=== PATIENT | male | born 1960 | race Caucasian/White ===

== ENCOUNTER → 2017-06-24 | Outpatient (CLI) | payer OTHER ==
--- NOTE | 2017-06-24 15:25 | US ---
EXAMINATION TYPE: US bladder DATE OF EXAM: 06/24/2017 COMPARISON: NONE CLINICAL HISTORY: R35.1 Nocturia. EXAM MEASUREMENTS: Post Void Residual Volume: 3.8 mL Color Doppler performed to assess ureteral jets. Bilateral Jets seen: Yes Normal Post Void Residual (less than 50ml): yes Bladder is not greatly distended but there is no suspicious intraluminal mass or wall thickening seen . IMPRESSION: Unremarkable study.
== END ==
LOC: RADUSWWP 14:14
PROVIDERS: ATTEND Family Medicine
DX: R35.1 Nocturia (principal)
CPT/HCPCS: 76857

== ENCOUNTER 2017-11-03 11:40 | Inpatient (IN) | payer OTHER ==
[2017-11-03] MEDS ORDERED: SODIUM CHLORIDE 0.9% 1,000 ML IV STA (12:08)
[2017-11-03] MEDS ORDERED: ONDANSETRON 4 MG/2 ML VIAL IVP STA (12:08)
[2017-11-03] MEDS ORDERED: MORPHINE SULFATE 4 MG/ML SYRINGE IV STA (12:08)
[2017-11-03 12:37] LABS: Basophils % (A) 0 %; Eosinophils # (A) 0.3 k/uL (0-0.7); Eosinophils % (A) 4 %; HCT 49.9 % (39.0-53.0); HGB 15.4 gm/dL (13.0-17.5); Lymphocytes # (A) 1.9 k/uL (1.0-4.8); Lymphocytes % (A) 27 %; MCH 29.9 pg (25.0-35.0); MCHC 30.9 g/dL (31.0-37.0); MCV 96.5 fL (80.0-100.0); Mean Platelet Volume 8.6; Monocytes # (A) 0.4 k/uL (0-1.0); Monocytes % (A) 5 %; Neutrophils # (A) 4.4 k/uL (1.3-7.7); Neutrophils % (A) 62 %; Platelet Count 153 k/uL (150-450); RBC 5.17 m/uL (4.30-5.90); RDW 14.3 % (11.5-15.5); WBC 7.1 k/uL (3.8-10.6)
[2017-11-03 12:40] LABS: ALT 34 U/L (21-72); AST 26 U/L (17-59); Albumin 3.9 g/dL (3.5-5.0); Alkaline Phosphatase 54 U/L (38-126); Amylase <30 U/L (30-110); Anion Gap 8 mmol/L; Blood Urea Nitrogen 16 mg/dL (9-20); Calcium 9.3 mg/dL (8.4-10.2); Carbon Dioxide 23 mmol/L (22-30); Chloride 108 mmol/L (98-107); Glucose 141 mg/dL (74-99); Lipase 14 U/L (23-300); Potassium 4.1 mmol/L (3.5-5.1); Sodium 139 mmol/L (137-145); Total Protein 6.4 g/dL (6.3-8.2)
--- NOTE | 2017-11-03 13:31 | CT ---
EXAMINATION TYPE: CT abdomen pelvis w con DATE OF EXAM: 11/03/2017 COMPARISON: NONE HISTORY: 57-year-old male with generalized abdominal pain. 46 lb weight loss over one week. TECHNIQUE: Contiguous axial scanning of the abdomen and pelvis following administration of 100 ml Iso tanisha 300 IV contrast. Delayed images through the kidneys and coronal/sagittal reconstructions perform ed. CT DLP: 3946 mGycm Automated exposure control for dose reduction was used. FINDINGS: Heart upper limits of normal in size without pericardial effusion. There is a small right-sided pleur al effusion with adjacent atelectasis. Some fat stranding is noted throughout the subcutaneous adipose layer with dependent edema suggesting anasarca-type change. No focal liver lesion is seen though the liver is enlarged at 20.5 cm greater caudal. Weak opacificat ion of the portal venous system limited assessment. No obvious filling defect is seen. No biliary megan kiara dilatation. A couple prominent celeste hepatic lymph nodes measuring up to 1.1 cm and a prominent but nonenlarged p ortacaval lymph node measuring 1.0 cm. Gastrohepatic ligament lymph node measures 1.0 cm. There may be some layering sludge in the gallbladder. Gallbladder mildly hydropic probably relating t o fasting state. Adrenal glands, kidneys, spleen, and atrophic pancreas show no gross abnormality. However, on the del ayed kidney images, no contrast excretion is seen from the kidneys. There is moderate abdominal ascites. Incidental retroaortic left renal vein. No dilated small bowel or free air. Mild overall stool burden with sigmoid diverticulosis but no findings of acute diverticulitis. Bladder nondistended. Artifact from the patient's right total arthroplasty limiting visualization of the pelvis. Presacral edema and ascites fluid. No pelvic lymphadenopathy seen. Bones: Right hip replacement as mentioned above. There is heterotopic ossification along the superior aspect of the right hip joint. L5 bilateral assimilation joints with the sacrum incidentally noted. Degenerative changes lower lumbar spine. There is a 2 cm focus of AVN along the weightbearing aspect of the femoral head and 1.8 cm wide area of subarticular collapse noted. IMPRESSION: 1. DIFFUSE ANASARCA-TYPE CHANGE, MODERATE ABDOMINOPELVIC ASCITES, AND SMALL RIGHT PLEURAL EFFUSION. C ORRELATE FOR FLUID OVERLOAD STATE AND POSSIBLE CAUSES. 2. HEPATOMEGALY (20.5 CM). CORRELATE TO EXCLUDE UNDERLYING HEPATITIS/LIVER FAILURE A POSSIBLE ETIO LOGY. 3. NO CONTRAST EXCRETION FROM THE KIDNEYS ON THE DELAYED KIDNEY IMAGES. CORRELATE WITH RENAL FUNCTION WITH ACUTE RENAL FAILURE INCLUDING ATN AND CONTRAST NEPHROPATHY INCLUDED IN THE DIFFERENTIAL. 4. MILDLY HYDROPIC GALLBLADDER LIKELY RELATING TO FASTING STATE. SOME LAYERING SLUDGE IS PRESENT WITH IN. IF RIGHT UPPER QUADRANT PAIN OR CONCERN FOR EARLY ACUTE CHOLECYSTITIS, FOLLOW-UP ULTRASOUND OR HI DA SCAN. 5. SIGMOID DIVERTICULOSIS WITHOUT ACUTE DIVERTICULITIS. 6. 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
[2017-11-03] MEDS ORDERED: FUROSEMIDE 10 MG/ML 10 ML VIAL IV STA (14:03)
--- NOTE | 2017-11-03 14:19 | ED ---
Abdominal Pain HPI - General Chief Complaint: Abdominal Pain Stated Complaint: ABDOMINAL SWELLING, WEIGHT GAIN Time Seen by Provider: 11/03/17 11:59 Source: patient Mode of arrival: ambulatory Limitations: no limitations - History of Present Illness Initial Comments: 57 years old male comes in with the abdominal pain, abdominal pain started about 1 week ago he is also complaining about abdominal distention his abdomen is quite distended and noticed some edema and swelling over the abdomen as well as lower extremities he denies any past medical history he does drink he was rather vague about how much she does she drink but he denies any history of hepatitis B or hepatitis C or any history of cirrhosis in the past. Denies any headaches no neck stiffness no chest pain he is short-winded because of the distended abdomen denies any pleuritic chest pain - Related Data Home Medications Medication Instructions Recorded Confirmed Albuterol Nebulized [Ventolin 2.5 mg INHALATION Q4H 11/03/17 11/03/17 Nebulized] Ergocalciferol [Vitamin D2] 50,000 unit PO Q7D 11/03/17 11/03/17 Hydrocodone/Acetaminophen 1 tab PO Q4HR PRN 11/03/17 11/03/17 [Hydrocodone-Acetamin 7.5-300] Allergies Allergy/AdvReac Type Severity Reaction Status Date / Time No Known Allergies Allergy Verified 11/03/17 11:49 Review of Systems ROS Statement: Those systems with pertinent positive or pertinent negative responses have been documented in the HPI. ROS Other: All systems not noted in ROS Statement are negative. Past Medical History Past Medical History: Asthma Additional Past Medical History / Comment(s): chronic hip pain, back pinched nerves History of Any Multi-Drug Resistant Organisms: None Reported Additional Past Surgical History / Comment(s): right hip replace, amputation left hand Past Psychological History: No Psychological Hx Reported Smoking Status: Current every day smoker Past Alcohol Use History: Daily Past Drug Use History: None Reported General Exam - General Exam Comments Initial Comments: General: The patient is awake and alert, in mild distress because of the distended abdomen Skin: Skin is warm and dry and no rashes or lesions are noted. Eye: Pupils are equal, round and reactive to light, extra-ocular movements are intact; there is normal conjunctiva bilaterally. Ears, nose, mouth and throat: There are moist mucous membranes and no oral lesions. Neck: The neck is supple, there is no tenderness or JVD. Cardiovascular: There is a regular rate and rhythm. No murmur, rub or gallop is appreciated. Respiratory: To auscultation bilateral, no wheezing no rhonchi no distress respiratory castrejon noticed Gastrointestinal: Noticed him a quite large distention of the abdomen noticed some fluid overload, it's like anasarca a generalized edema of the abdomen and was not able to appreciate any hepatosplenomegaly because of the edema no focal area of tenderness noticed bowel sounds are positive no guarding no rebounds no signs of peritonitis noticed in today's abdominal exam Back: There is no tenderness to palpation in the midline. There is no obvious deformity. Musculoskeletal: Normal ROM, no tenderness, There is no pedal edema. There is no calf tenderness or swelling. No cords were appreciated. Neurological: CN II-XII intact, Cranial nerves III through XII are intact. There are no obvious motor or sensory deficits. Coordination appears grossly intact. Speech is normal. Psychiatric: Cooperative, appropriate mood & affect, normal judgment. Limitations: no limitations Course Vital Signs 11/03/17 11/03/17 11:50 14:05 Temperature 97.5 F L Pulse Rate 113 H 101 H Respiratory 18 18 Rate Blood Pressure 129/91 123/80 O2 Sat by Pulse 96 94 L Oximetry Upon reassessment noticed CBC, CMP, comp his metabolic panel are within normal range so is the troponin, CT of the abdomen is significant for ascites some sludge and gallbladder and now avascular necrosis of the hip or the one side but that's no tingling in included an patient's presenting complaint today. These findings were discussed with the Dr. Galan he agrees with the admission will allow consult Dr. Perez for further evaluation of her possible liver disease Medical Decision Making - Lab Data Result diagrams: 11/03/17 12:15 11/03/17 12:15 Lab Results 11/03/17 11/03/17 11/03/17 Range/Units 12:15 12:15 12:15 WBC 7.1 (3.8-10.6) k/uL RBC 5.17 (4.30-5.90) m/uL Hgb 15.4 (13.0-17.5) gm/dL Hct 49.9 (39.0-53.0) % MCV 96.5 (80.0-100.0) fL MCH 29.9 (25.0-35.0) pg MCHC 30.9 L (31.0-37.0) g/dL RDW 14.3 (11.5-15.5) % Plt Count 153 (150-450) k/uL Neutrophils % 62 % Lymphocytes % 27 % Monocytes % 5 % Eosinophils % 4 % Basophils % 0 % Neutrophils # 4.4 (1.3-7.7) k/uL Lymphocytes # 1.9 (1.0-4.8) k/uL Monocytes # 0.4 (0-1.0) k/uL Eosinophils # 0.3 (0-0.7) k/uL Basophils # 0.0 (0-0.2) k/uL Sodium 139 (137-145) mmol/L Potassium 4.1 (3.5-5.1) mmol/L Chloride 108 H (98-107) mmol/L Carbon Dioxide 23 (22-30) mmol/L Anion Gap 8 mmol/L BUN 16 (9-20) mg/dL Creatinine 0.68 (0.66-1.25) mg/dL Est GFR (CKD-EPI)AfAm >90 (>60 ml/min/1.73 sqM) Est GFR (CKD-EPI)NonAf >90 (>60 ml/min/1.73 sqM) Glucose 141 H (74-99) mg/dL Plasma Lactic Acid Arnaldo 1.1 (0.7-2.0) mmol/L Calcium 9.3 (8.4-10.2) mg/dL Total Bilirubin 1.0 (0.2-1.3) mg/dL AST 26 (17-59) U/L ALT 34 (21-72) U/L Alkaline Phosphatase 54 (38-126) U/L Troponin I (0.000-0.034) ng/mL Total Protein 6.4 (6.3-8.2) g/dL Albumin 3.9 (3.5-5.0) g/dL Amylase <30 L (30-110) U/L Lipase 14 L (23-300) U/L 11/03/17 Range/Units 12:15 WBC (3.8-10.6) k/uL RBC (4.30-5.90) m/uL Hgb (13.0-17.5) gm/dL Hct (39.0-53.0) % MCV (80.0-100.0) fL MCH (25.0-35.0) pg MCHC (31.0-37.0) g/dL RDW (11.5-15.5) % Plt Count (150-450) k/uL Neutrophils % % Lymphocytes % % Monocytes % % Eosinophils % % Basophils % % Neutrophils # (1.3-7.7) k/uL Lymphocytes # (1.0-4.8) k/uL Monocytes # (0-1.0) k/uL Eosinophils # (0-0.7) k/uL Basophils # (0-0.2) k/uL Sodium (137-145) mmol/L Potassium (3.5-5.1) mmol/L Chloride (98-107) mmol/L Carbon Dioxide (22-30) mmol/L Anion Gap mmol/L BUN (9-20) mg/dL Creatinine (0.66-1.25) mg/dL Est GFR (CKD-EPI)AfAm (>60 ml/min/1.73 sqM) Est GFR (CKD-EPI)NonAf (>60 ml/min/1.73 sqM) Glucose (74-99) mg/dL Plasma Lactic Acid Arnaldo (0.7-2.0) mmol/L Calcium (8.4-10.2) mg/dL Total Bilirubin (0.2-1.3) mg/dL AST (17-59) U/L ALT (21-72) U/L Alkaline Phosphatase (38-126) U/L Troponin I <0.012 (0.000-0.034) ng/mL Total Protein (6.3-8.2) g/dL Albumin (3.5-5.0) g/dL Amylase (30-110) U/L Lipase (23-300) U/L Disposition Clinical Impression: Anasarca, Ascites Disposition: ADMITTED IP TO THIS HOSP Condition: Good Referrals: Reinier Galan MD [Primary Care Provider] - 1-2 days
[2017-11-03] MEDS ORDERED: ACETAMINOPHEN TAB 325 MG TAB PO PRN (14:33)
[2017-11-03] MEDS ORDERED: NALOXONE 0.4 MG/ML 1 ML VIAL IV PRN (14:33)
[2017-11-03] MEDS ORDERED: ONDANSETRON 4 MG/2 ML VIAL IVP PRN (14:33)
[2017-11-03] MEDS ORDERED: SPIRONOLACTONE 25 MG TAB PO STA (14:38)
[2017-11-03 14:51] LABS: Appearance,Urine Clear (Clear); Bilirubin,Urine Negative (Negative); Blood,Urine Negative (Negative); Color,Urine Yellow; Glucose,Urine (UA) Negative (Negative); Ketones,Urine Negative (Negative); Leukocyte Esterase,Urine Negative (Negative); Nitrite,Urine Negative (Negative); PH, Urine 5.5 (5.0-8.0); Protein,Urine Trace (Negative); Urobilinogen,Urine <2.0 mg/dL (<2.0)
[2017-11-03 15:00] LABS: Specific Gravity,Urine >1.050 (1.001-1.035)
--- NOTE | 2017-11-03 15:04 | XR ---
EXAMINATION TYPE: XR chest 2V DATE OF EXAM: 11/03/2017 COMPARISON: November 03, 2017 HISTORY: Shortness of breath TECHNIQUE: Frontal and lateral views of the chest are obtained. FINDINGS: Scattered senescent parenchymal changes noted. Hyperinflation compatible with COPD. No evidence for infiltrate. No evidence for atelectasis. Heart size is stable. Mediastinal structures are stable and grossly unremarkable. No evidence for hilar prominence. Degenerative changes dorsal spine. IMPRESSION: 1. No evidence for acute pulmonary disease.
[2017-11-03] MEDS: ALBUTEROL NEBULIZED 2.5 MG/3 ML INHALATION SCH ×3 (16:37→23:05)
--- NOTE | 2017-11-03 17:55 | HP ---
HISTORY AND PHYSICAL CHIEF COMPLAINT: Abdominal distention and weight gain of 46 pounds. HISTORY OF PRESENT ILLNESS: This is another admission for this 57-year-old white male. He came to the office on the morning of admission, stating that he had been gaining weight in his abdomen and become hugely distended. He denied any vomiting, significant abdominal pain, diarrhea, melena, jaundice, etc. In the office, flat and upright films did not demonstrate any abnormal bowel pattern and he was referred to the emergency room for a further evaluation, including CT. Results in the ER indicated that his problem was related to cirrhosis with ascites and he was admitted. He has also been complaining of shortness of breath, but his chest x-ray in the office demonstrated no evidence of heart failure or effusions. REVIEW OF SYSTEMS: He has had no nausea, vomiting, melena, hematochezia, jaundice, dysuria, renal failure, etc. PAST MEDICAL HISTORY, FAMILY HISTORY, PERSONAL AND SOCIAL HISTORIES: Reveal he is not allergic to any medication. He is on: 1. Albuterol updrafts. 2. Vitamin D. 3. Lipitor 80. 4. Amaryl 2 mg twice a day. 5. Vicodin 7.5 q.4h p.r.n. 6. Ventolin HFA. In 1999, he had a myocardial infarction. He has had a right hip replacement. He does smoke. He admits to drinking "occasionally." PHYSICAL EXAMINATION: Blood pressure is 142/88 with a pulse of 90, respirations of 41. He is afebrile. In general, he appeared to be overweight and in no acute distress. Abdomen was very distended. Lymph nodes are not enlarged. There is no jaundice. Head, ears, eyes, nose, mouth, and throat were normal and chest was clear. Cardiac demonstrated what sounded like sinus rhythm. There were no murmurs or extra sounds. The abdomen is very protuberant and hard. Bowel sounds are present. He had cellulitis over the lower abdomen. Extremities are normal except for mild edema. Neurologically, he is intact and intact. He is admitted to the hospital with diagnoses: 1. Alcoholic cirrhosis with ascites. 2. Cellulitis of the lower abdominal wall. 3. History of chronic obstructive pulmonary disease. 4. Type 2 non-insulin dependent diabetes mellitus. PLAN: 1. Bed rest. 2. IV fluids. 3. Diuresis. 4. GI consult. MMODL / IJN: [id number] /
[2017-11-03] MEDS: HYDROcodone/APAP 7.5-325MG 1 EACH TAB PO PRN ×2 (18:19→22:56)
[2017-11-04] MEDS: ALBUTEROL NEBULIZED 2.5 MG/3 ML INHALATION SCH ×5 (03:30→20:17)
[2017-11-04] MEDS: HYDROcodone/APAP 7.5-325MG 1 EACH TAB PO PRN ×3 (05:00→17:18)
[2017-11-04 07:54] LABS: ALT 29 U/L (21-72); AST 24 U/L (17-59); Albumin 3.8 g/dL (3.5-5.0); Alkaline Phosphatase 50 U/L (38-126); Anion Gap 8 mmol/L; Blood Urea Nitrogen 17 mg/dL (9-20); Calcium 9.5 mg/dL (8.4-10.2); Carbon Dioxide 25 mmol/L (22-30); Chloride 105 mmol/L (98-107); Glucose 155 mg/dL (74-99); Sodium 138 mmol/L (137-145); Total Bilirubin 0.8 mg/dL (0.2-1.3); Total Protein 6.3 g/dL (6.3-8.2)
[2017-11-04 07:55] LABS: Potassium 4.4 mmol/L (3.5-5.1)
[2017-11-04 08:11] LABS: Basophils # (A) 0.1 k/uL (0-0.2); Basophils % (A) 1 %; Eosinophils # (A) 0.4 k/uL (0-0.7); Eosinophils % (A) 5 %; HCT 50.8 % (39.0-53.0); HGB 15.4 gm/dL (13.0-17.5); Hypochromasia Slight; Lymphocytes % (A) 25 %; MCHC 30.4 g/dL (31.0-37.0); MCV 98.9 fL (80.0-100.0); Mean Platelet Volume 9.2; Monocytes # (A) 0.6 k/uL (0-1.0); Monocytes % (A) 7 %; Neutrophils # (A) 4.8 k/uL (1.3-7.7); Neutrophils % (A) 60 %; Platelet Count 152 k/uL (150-450); RBC 5.14 m/uL (4.30-5.90); RDW 14.3 % (11.5-15.5)
[2017-11-04 12:27] LABS: INR 1.2 (<1.2); Prothrombin Time 11.7 sec (9.0-12.0)
--- NOTE | 2017-11-04 17:44 | PN ---
PROGRESS NOTE CHIEF COMPLAINT: Anasarca and ascites. HISTORY OF PRESENT ILLNESS: This gentleman has not diuresed a great deal yet. It was explained that this likely is due to cirrhosis, but he does not want to accept this. PHYSICAL EXAMINATION: Abdomen still remains very distended. Chest is clear. Cardiac exam is normal. IMPRESSION: Anasarca and ascites secondary to cirrhosis. PLAN: Add additional diuretic management and continue to follow. MMODL / IJN: [id number] /
[2017-11-04] MEDS ORDERED: POLYETHYLENE GLYCOL 3350 17 GM POWD.PACK PO STA (18:53)
--- NOTE | 2017-11-04 19:06 | P.CONS ---
History of Present Illness - Reason for Consult Consult date: 11/04/17 Ascites Requesting physician: Reinier Galan - Chief Complaint Abdominal swelling - History of Present Illness The patient is a 57-year-old male with past medical history significant for asthma, tobacco abuse who presented to the hospital with reports of abdominal pain for 8 days in duration. The patient reports significant abdominal distention and bloating which occurred acutely over the last 8 days. He reports an associated 46 pounds weight gain. He denies any prior episodes of abdominal swelling or fluid. He has never had a paracentesis in the past. He also notes that his bowel movements have changed over this same period. The patient previously had daily bowel movements with no hematochezia, melena or constipation. Over the past 8 days he had had approximately 4 bowel movements and only with the assistance of a laxative. He also had one bowel movement with some blood noted on the stool and with wiping. Subsequent bowel movements have been nonbloody. He has had screening colonoscopy at the age of 50, approximately 8 years ago which she believes was normal. He denies any history of heavy alcohol use. Denies any history of pancreatitis or cirrhosis. Denies any confusion or previous upper GI bleeds. He does report chills and sweats recently. The patient reports being very uncomfortable because of the abdominal distal distention and having difficulty breathing and lying flat because of his distended abdomen. The patient's father of colon cancer which was diagnosed in his mid to late 80s. Past endoscopic history: Colonoscopy 8 years ago which he believes was normal. Review of Systems REVIEW OF SYSTEMS: CARDIOPULMONARY: Denies chest pain but the patient has had shortness of breath due to his distended abdomen. GENITOURINARY: No dysuria or hematuria. MUSCULOSKELETAL: No weakness reported. SKIN: Denies any new rashes or lesions, jaundice or pallor. PSYCHIATRIC: Denies any depression or anxiety. NEUROLOGY: Denies headache, denies any new focal deficits. EARS: No tinnitus, discharge or new hearing loss. NOSE: No discharge or congestion. EYES: No pain in eyes or change in vision. CONSTITUTIONAL: No recent weight loss with the patient actually reporting a 46 pound weight gain in the past 8 days due to his abdominal distention. No fever, but the patient has had chills, and night sweats. Past Medical History Past Medical History: Asthma Additional Past Medical History / Comment(s): chronic hip pain, back pinched nerves History of Any Multi-Drug Resistant Organisms: None Reported Additional Past Surgical History / Comment(s): right hip replace, amputation left hand Past Anesthesia/Blood Transfusion Reactions: No Reported Reaction Past Psychological History: No Psychological Hx Reported Smoking Status: Current every day smoker Past Alcohol Use History: Daily Past Drug Use History: None Reported - Past Family History Mother Family Medical History: COPD Father Family Medical History: Cancer Medications and Allergies Home Medications Medication Instructions Recorded Confirmed Type Albuterol Inhaler [Ventolin Hfa 1 - 2 puff INHALATION RT-Q6H PRN 11/03/17 History Inhaler] Albuterol Nebulized [Ventolin 2.5 mg INHALATION RT-Q4H PRN 11/03/17 11/03/17 History Nebulized] Ergocalciferol [Vitamin D2] 50,000 unit PO Q14D 11/03/17 11/03/17 History HYDROcodone/APAP 7.5-325MG [[place] 1 - 2 tab PO Q4H PRN 11/03/17 11/03/17 History 7.5-325] Allergies Allergy/AdvReac Type Severity Reaction Status Date / Time No Known Allergies Allergy Verified 11/03/17 14:21 Physical Exam Vitals: Vital Signs Temp Pulse Pulse Resp BP Pulse Ox 11/04/17 16:53 110 H 11/04/17 16:44 110 H 11/04/17 15:00 97.6 F 111 H 18 146/72 93 L 11/04/17 12:16 100 11/04/17 12:07 96 11/04/17 07:40 100 11/04/17 07:34 92 L 11/04/17 07:33 100 11/04/17 07:25 97.6 F 109 H 20 116/84 90 L 11/04/17 03:40 106 H 11/04/17 03:30 109 H 11/04/17 03:15 20 11/03/17 23:58 20 11/03/17 23:39 98 F 116 H 20 115/75 95 11/03/17 23:15 108 H 11/03/17 23:06 108 H 11/03/17 20:00 18 11/03/17 19:43 112 H 18 11/03/17 19:24 98.3 F 115 H 18 116/78 93 L Intake and Output 11/04/17 11/04/17 11/04/17 06:59 14:59 22:59 Intake Total 1200 400 Balance 1200 400 Intake: Intake, IV Titration 800 Amount Sodium Chloride 0.9% 1, 800 000 ml @ 100 mls/hr IV . Q10H STA Rx#:[id number] Oral 400 Other 400 Other: Voiding Method Toilet # Voids 3 3 On physical examination, patient appears comfortable in no apparent distress. HEAD: Normocephalic, atraumatic. EYES: No scleral icterus. No conjunctival injection. MOUTH: No lesions, tongue midline, poor dentition. NECK: Trachea midline, no gross abnormalities. CHEST: Decreased air entry in all lung mi with some wheezing noted. HEART: Regular rate and rhythm. ABDOMEN: Distended obese. Patient has tense ascites with positive fluid wave. Bowel sounds are positive. No organomegaly. No guarding or rigidity. EXTREMITIES: Bilateral pedal edema. SKIN: No rashes, no jaundice. NEUROLOGIC: Alert and oriented x3. No focal deficits. Results CBC & Chem 7: 11/04/17 07:11 11/04/17 07:11 Labs: Abnormal Lab Results - Last 24 Hours (Table) 11/04/17 11/04/17 11/04/17 Range/Units 07:11 07:11 11:55 MCHC 30.4 L (31.0-37.0) g/dL INR 1.2 H (<1.2) Glucose 155 H (74-99) mg/dL Microbiology - Last 24 Hours (Table) 11/03/17 12:23 Blood Culture - Preliminary Blood No Growth after [address] scan - abdomen: report reviewed (Computed tomography scan abdomen showing fluid in the abdomen and pelvis, diverticulosis, and hepatomegaly with other findings per radiology report.) Assessment and Plan (1) Ascites Narrative/Plan: Unknown etiology, the patient does have hepatomegaly but liver enzymes, INR and platelet counts are not suggestive of cirrhosis and portal hypertension as etiology of the patient's ascites. Other considerations are for cardiac source or underlying malignancy. Current Visit: Yes Status: Acute Code(s): R18.8 - OTHER ASCITES SNOMED Code(s): 326191512 (2) Hepatomegaly Narrative/Plan: Unclear etiology, may represent fatty liver. No elevation in liver enzymes to suggest cirrhosis or acute infection. Current Visit: Yes Status: Acute Code(s): R16.0 - HEPATOMEGALY, NOT ELSEWHERE CLASSIFIED SNOMED Code(s): 00045263 (3) Constipation Narrative/Plan: Constipation over the past 8 days in association with the patient's ascites. This may be secondary to fluid overload. Per the patient his last colonoscopy was 8 years ago and was normal. Current Visit: Yes Status: Acute Code(s): K59.00 - CONSTIPATION, UNSPECIFIED SNOMED Code(s): 50430344 (4) Hematochezia Narrative/Plan: The patient reports one episode of blood mixed with his stool and with wiping that occurred several days ago. Subsequent bowel movements have been nonbloody. Per history the blood sounds hemorrhoidal in nature. Current Visit: Yes Status: Acute Code(s): K92.1 - MELENA SNOMED Code(s): 267232331 Plan: Supportive care Okay for diet Acute hepatitis panel or ordered Follow liver enzymes Paracentesis with fluid studies including cell count and differential, cytology , albumin, protein, glucose, LDH have all been ordered. This will be both diagnostic and therapeutic. MiraLAX daily started No plan for endoscopy at this time. Patient's report of 1 episode of blood per rectum with wiping likely indicates hemorrhoids. However if paracentesis is not revealing of etiology the patient will benefit from a endoscopic to rule out malignancy. Thank you for allowing us to participate in the care of this patient
[2017-11-04] MEDS: FUROSEMIDE 10 MG/ML 4 ML VIAL IV SCH (19:32)
[2017-11-04] MEDS: SPIRONOLACTONE 25 MG TAB PO SCH (20:52)
[2017-11-05] MEDS: ALBUTEROL NEBULIZED 2.5 MG/3 ML INHALATION SCH ×8 (00:04→23:27)
[2017-11-05] MEDS: HYDROcodone/APAP 7.5-325MG 1 EACH TAB PO PRN ×5 (00:41→22:57)
[2017-11-05 07:50] LABS: INR 1.2 (<1.2); Prothrombin Time 11.4 sec (9.0-12.0)
[2017-11-05] MEDS: POLYETHYLENE GLYCOL 3350 17 GM POWD.PACK PO SCH ×2 (08:27→12:02)
[2017-11-05] MEDS: FUROSEMIDE 10 MG/ML 4 ML VIAL IV SCH ×2 (08:33→20:16)
[2017-11-05] MEDS: SPIRONOLACTONE 25 MG TAB PO SCH ×2 (08:34→20:15)
--- NOTE | 2017-11-05 12:48 | PN ---
PROGRESS NOTE DATE OF SERVICE: 11/05/2017 Patient is a 57-year-old white male who was admitted to hospital with abdominal pain abdominal distention for the last 2 weeks duration. He had a CT of the abdomen that showed ascites and he underwent large volume paracentesis this morning by Interventional Radiology and 4 L of fluid was aspirated. He feels much better. He still has some abdominal distention and abdominal bloating. He complains of constipation. His last colonoscopy was 8 years ago and according to him was within normal limits. He has no history of chronic liver disease. No history of jaundice or hepatitis. PHYSICAL EXAMINATION: On physical examination, he appears comfortable in no apparent distress. Vital signs are stable. Blood pressure is 120/86, pulse rate 107, and afebrile. HEENT EXAMINATION: Unremarkable. Conjunctivae are pink. Sclerae anicteric. Oral cavity, no lesions. NECK: No JVD or lymph node enlargement. Chest was clear to auscultation. HEART: Regular rate and rhythm. ABDOMEN: Soft. It was slightly distended. Bowel sounds are positive. No organomegaly. EXTREMITIES: No pedal edema. SKIN: No rashes. NEURO: Alert and oriented x3. No focal deficits. LABS: Labs from yesterday, WBC 8, hemoglobin 15, platelets are normal. Basic metabolic panel is within normal limits. ALT, AST, bilirubin and alkaline phosphatase are all within normal limits. Albumin is 3.8. CT of the abdomen done at the time of admission to the hospital did show evidence of ascites. Liver was enlarged. Evidence of diffuse anasarca, hepatomegaly and sigmoid diverticulosis. IMPRESSION: 1. New onset ascites in this patient who does not have any history of chronic liver disease in the past. No history of alcoholism. CT of the abdomen as mentioned above showed ascites, status post large volume paracentesis for diagnostic and therapeutic purposes, which was done this morning and 4 L of fluid was removed. 2. New onset constipation in this patient who also has a family history of colorectal neoplasia that was diagnosed with colon cancer. His last colonoscopy was 8 years ago. RECOMMENDATIONS: 1. At this time we will await fluid analysis and cytology results. 2. I agree with diuretics. 3. Labs in the morning and will follow him closely during his hospital stay. Thank you for this consultation. MMODL / MARYN: [id number] /
[2017-11-05 13:11] LABS: Appearance,BF Hazy; Color,BF Yellow; Nucleated Cells, Body Fluid 560 /uL; RBC, Body Fluid 350 /uL
[2017-11-05 13:13] LABS: Mononuclear WBC,Body Fluid 94 %; Polynuclear WBC,Body Fluid 6 %; Total Cells Counted,Body Fluid 100
--- NOTE | 2017-11-05 13:15 | US ---
EXAMINATION TYPE: US paracentesis abd w/image DATE OF EXAM: 11/05/2017 CLINICAL HISTORY: 57-year-old male abdominal ascites TECHNIQUE: The procedure was discussed with the patient. The risks, complications, benefits, and alternatives we re discussed and any questions were answered. Informed consent was obtained from the patient. The patient was placed supine on the ultrasound table and prepped and draped in the usual sterile fas hion. All elements of maximal barrier technique were utilized. Ultrasound was used to select the precise s kin entry site along the left lower quadrant. Moderate abdominal ascites was noted here. Subsequently, a 6 Lithuan[place] safety centesis catheter was introduced into the left lower quadrant ascites collection utilizing trocar technique. Approximately 6 liters of straw-colored fluid was removed. Patient remained stable during the procedu re and monitoring was performed by nursing personnel. The catheter was removed, hemostasis obtained, and Tegaderm dressing placed. Specimen was labeled and sent for laboratory analysis. IMPRESSION: Successful diagnostic and therapeutic paracentesis under ultrasound guidance. 6 L removed. Laboratory analysis pending.
[2017-11-05 16:19] LABS: Basophils % (A) 1 %; Eosinophils # (A) 0.3 k/uL (0-0.7); Eosinophils % (A) 5 %; HCT 46.8 % (39.0-53.0); Lymphocytes # (A) 1.7 k/uL (1.0-4.8); Lymphocytes % (A) 27 %; MCH 30.4 pg (25.0-35.0); MCHC 32.1 g/dL (31.0-37.0); MCV 94.6 fL (80.0-100.0); Mean Platelet Volume 9.5; Monocytes # (A) 0.4 k/uL (0-1.0); Monocytes % (A) 7 %; Neutrophils # (A) 3.9 k/uL (1.3-7.7); Neutrophils % (A) 60 %; Platelet Count 125 k/uL (150-450); RBC 4.95 m/uL (4.30-5.90); WBC 6.6 k/uL (3.8-10.6)
[2017-11-05 16:34] LABS: ALT 31 U/L (21-72); AST 22 U/L (17-59); Albumin 3.6 g/dL (3.5-5.0); Alkaline Phosphatase 48 U/L (38-126); Anion Gap 8 mmol/L; Blood Urea Nitrogen 19 mg/dL (9-20); Calcium 9.6 mg/dL (8.4-10.2); Carbon Dioxide 28 mmol/L (22-30); Chloride 101 mmol/L (98-107); Glucose 157 mg/dL (74-99); Potassium 4.6 mmol/L (3.5-5.1); Sodium 137 mmol/L (137-145); Total Bilirubin 0.6 mg/dL (0.2-1.3)
[2017-11-05 17:18] LABS: Total Protein, Body Fluid 3700 mg/dL
[2017-11-05 17:42] LABS: Hepatitis B Core IgM Non-Reactive (Non-Reactive); Hepatitis B Surface AB- Quant 3.5 mIU/mL
[2017-11-05] MEDS: AMOXIC-POT CLAV 875-125MG 1 EACH TAB PO SCH (20:16)
[2017-11-06] MEDS: HYDROcodone/APAP 7.5-325MG 1 EACH TAB PO PRN ×4 (02:51→17:52)
[2017-11-06] MEDS: ALBUTEROL NEBULIZED 2.5 MG/3 ML INHALATION SCH ×5 (03:29→19:24)
[2017-11-06] MEDS: SPIRONOLACTONE 25 MG TAB PO SCH ×2 (08:26→20:05)
[2017-11-06] MEDS: POLYETHYLENE GLYCOL 3350 17 GM POWD.PACK PO SCH (08:26)
[2017-11-06] MEDS: FUROSEMIDE 10 MG/ML 4 ML VIAL IV SCH ×2 (08:26→20:05)
[2017-11-06] MEDS: AMOXIC-POT CLAV 875-125MG 1 EACH TAB PO SCH ×2 (08:27→20:05)
--- NOTE | 2017-11-06 10:25 | PN ---
PROGRESS NOTE Patient is a 57-year-old pleasant white male admitted to the hospital with new onset ascites. He underwent large volume paracentesis 2 days ago and approximately 4 L of fluid was aspirated. He is doing better today. He still complains of severe constipation. He reports no abdominal pain. No nausea, vomiting. He has been started on diuretics with Lasix and Aldactone and doing better. PHYSICAL EXAMINATION: Appears comfortable. No apparent distress. Vital signs are stable. Blood pressure 102/71, pulse rate 95, temperature 97.8. HEENT examination unremarkable. Conjunctivae pink. Sclerae anicteric. Oral cavity no lesions. No JVD or lymph node enlargement. The chest was clear to auscultation. HEART: Regular rate and rhythm. The abdomen is soft. Bowel sounds are positive. No organomegaly. EXTREMITIES: No pedal edema. SKIN: No rashes. NEUROLOGIC: Alert and oriented x3. No focal deficits. LABS: From fluid showed total fluid total protein is 3.7, fluid albumin is still pending. Fluid LDH is 88. Fluid WBC 6. Cytology is still pending. IMPRESSION: New onset ascites, status post diagnostic paracentesis yesterday. Fluid analysis still pending. At this time it is unclear if we are dealing with liver disease or other causes of ascites. The patient however does not have any history of chronic liver disease that has been diagnosed in the past. His serum transaminases during this hospitalization have been within normal limits. RECOMMENDATION: 1. Await the rest of the labs and cytology from the fluid. 2. Continue with diuretics with Lasix and Aldactone. 3. I will obtain hepatitis serologies for A, B, and C during this hospitalization. 4. The patient is going to be discharged home, he can follow up with Dr. He in 1- 2 weeks for further management of ascites. Thank you for this consultation. MMODL / IJN: [id number] /
[2017-11-07] MEDS: ALBUTEROL NEBULIZED 2.5 MG/3 ML INHALATION SCH ×7 (00:18→23:40)
[2017-11-07] MEDS: HYDROcodone/APAP 7.5-325MG 1 EACH TAB PO PRN ×6 (02:16→23:24)
[2017-11-07] MEDS: POLYETHYLENE GLYCOL 3350 17 GM POWD.PACK PO SCH (09:52)
[2017-11-07] MEDS: AMOXIC-POT CLAV 875-125MG 1 EACH TAB PO SCH ×2 (09:52→20:18)
[2017-11-07] MEDS: FUROSEMIDE 10 MG/ML 4 ML VIAL IV SCH (09:52)
[2017-11-07] MEDS: SPIRONOLACTONE 25 MG TAB PO SCH ×2 (09:52→20:25)
--- NOTE | 2017-11-07 13:11 | PN ---
PROGRESS NOTE The patient is a 57-year-old pleasant white male admitted to the hospital with new onset ascites and lower extremity swelling. He underwent large volume paracentesis 2 days ago. Fluid cytology is pending. Fluid albumin was 3.7 g. Fluid protein is still pending. The patient is on Lasix 40 b.i.d. and Aldactone 50 b.i.d. He still complains of abdominal tightness and abdominal fullness. Lower extremity swelling is improving. He denies any abdominal pain. PHYSICAL EXAMINATION: Blood pressure 133/86, pulse rate 84, afebrile. HEENT examination unremarkable. Conjunctivae pink. Sclerae anicteric. Oral cavity, no lesions. NECK: No JVD or lymph node enlargement. Chest was clear to auscultation. HEART: Regular rate and rhythm. Abdomen is distended. Bowel sounds are positive. Edema of the anterior abdominal wall noted. Free fluid also noted. EXTREMITIES: 2+ pedal edema. SKIN: No rashes. NEUROLOGIC: Alert and oriented x3. No focal deficits. LABS: No labs from today. Hepatitis serologies for B was negative. Hepatitis C antibody was requested, but was not done. IMPRESSION: 1. New onset ascites in this patient with no history of chronic liver disease, status post diagnostic and therapeutic large volume paracentesis 2 days ago. Labs are still pending. 2. Mild thrombocytopenia, rule out chronic liver disease. RECOMMENDATIONS: 1. Await fluid cytology and fluid albumin levels. 2. Express for hepatitis C antibody. 3. Continue with Lasix 40 b.i.d. and increase Aldactone to 100 mg b.i.d. 4. Labs in the morning and will follow with you closely. Thank you for this consultation. MMODL / IJN: [id number] /
[2017-11-07] MEDS: FUROSEMIDE 250 MG in SODIUM CHLORIDE 0.9% 225 ML IVP SCH (17:23)
[2017-11-07] MEDS ORDERED: FUROSEMIDE 10 MG/ML 4 ML VIAL IV SCH (21:00)
--- NOTE | 2017-11-07 21:44 | PN ---
PROGRESS NOTE DATE OF SURGERY: 11/05/2017 CHIEF COMPLAINT: Ascites. HISTORY OF PRESENT ILLNESS: This gentleman is still very distended. He underwent a paracentesis. He is not having any significant abdominal pain. PHYSICAL EXAM: Chest is clear. Cardiac exam is normal. The abdomen is distended and firm with cellulitis of the lower aspect. IMPRESSION: Anasarca and ascites. PLAN: Start antibiotics for the cellulitis of abdominal wall. Continue with diuresis. MMODL / IJN: [id number] /
--- NOTE | 2017-11-07 21:53 | PN ---
PROGRESS NOTE DATE OF SERVICE: 11/06/2017 CHIEF COMPLAINT: Anasarca. HISTORY OF PRESENT ILLNESS: This gentleman is still very distended, a little bit short of breath. He is not responding well to diuretics. Physical exam: Abdomen is very tightly distended. He has a lower abdominal cellulitis which seems to be expanding despite the antibiotics. PHYSICAL EXAM: Otherwise unchanged. IMPRESSION: 1. Anasarca. 2. Ascites. 3. Lower abdominal cellulitis. 4. 5. Nonsustained asymptomatic ventricular tachycardia. PLAN: 1. Continue cardiac monitoring. 2. Continue efforts to diuresis. MMODL / IJN: [id number] /
[2017-11-07] MEDS: ceFAZolin IN SWFI 2 GM/20 ML SYRINGE IVP SCH (23:24)
[2017-11-08] MEDS: ALBUTEROL NEBULIZED 2.5 MG/3 ML INHALATION SCH ×5 (03:45→19:52)
[2017-11-08] MEDS: HYDROcodone/APAP 7.5-325MG 1 EACH TAB PO PRN ×5 (03:58→20:22)
--- NOTE | 2017-11-08 08:02 | PN ---
PROGRESS NOTE CHIEF COMPLAINT: Ascites and anasarca. HISTORY OF PRESENT ILLNESS: This gentleman's abdominal distention seems to be getting worse. The cellulitis of the abdominal wall seems to be spreading as well. He has had no fever, chills, abdominal pain, etc. PHYSICAL EXAM: Chest is clear, but breath sounds are diminished. Cardiac exam is normal. Abdomen is extremely distended and firm and cellulitis is expanding into the upper abdomen. IMPRESSION: 1. Anasarca. 2. Ascites. 3. Cellulitis of the abdominal wall. PLAN: 1. Change insulin over the insulin drip. 2. Aldactone has been increased. 3. Consult with Infectious Disease and Nephrology. MMODL / IJN: [id number] /
[2017-11-08 08:04] LABS: Basophils # (A) 0.1 k/uL (0-0.2); Basophils % (A) 1 %; Eosinophils # (A) 0.4 k/uL (0-0.7); Eosinophils % (A) 6 %; HCT 49.3 % (39.0-53.0); HGB 15.7 gm/dL (13.0-17.5); Lymphocytes # (A) 1.9 k/uL (1.0-4.8); Lymphocytes % (A) 27 %; MCH 30.1 pg (25.0-35.0); MCHC 31.8 g/dL (31.0-37.0); MCV 94.7 fL (80.0-100.0); Monocytes # (A) 0.4 k/uL (0-1.0); Monocytes % (A) 6 %; Neutrophils # (A) 3.9 k/uL (1.3-7.7); Neutrophils % (A) 57 %; Platelet Count 144 k/uL (150-450); RBC 5.21 m/uL (4.30-5.90); RDW 13.7 % (11.5-15.5); WBC 6.9 k/uL (3.8-10.6)
[2017-11-08 08:15] LABS: ALT 31 U/L (21-72); AST 23 U/L (17-59); Albumin 3.8 g/dL (3.5-5.0); Alkaline Phosphatase 50 U/L (38-126); Anion Gap 11 mmol/L; Blood Urea Nitrogen 18 mg/dL (9-20); Calcium 9.3 mg/dL (8.4-10.2); Carbon Dioxide 29 mmol/L (22-30); Chloride 98 mmol/L (98-107); Glucose 145 mg/dL (74-99); Potassium 4.4 mmol/L (3.5-5.1); Sodium 138 mmol/L (137-145); Total Bilirubin 0.8 mg/dL (0.2-1.3); Total Protein 6.3 g/dL (6.3-8.2)
[2017-11-08] MEDS: ceFAZolin IN SWFI 2 GM/20 ML SYRINGE IVP SCH (08:35)
[2017-11-08] MEDS: SPIRONOLACTONE 25 MG TAB PO SCH ×2 (08:35→20:24)
[2017-11-08] MEDS: POLYETHYLENE GLYCOL 3350 17 GM POWD.PACK PO SCH (08:35)
--- NOTE | 2017-11-08 09:03 | CONS ---
CONSULTATION DATE OF SERVICE: 11/07/2017. REASON FOR CONSULTATION: Abdominal wall cellulitis. HISTORY OF PRESENT ILLNESS: The patient is a 57-year-old male who presented to the [facility] 11/03/2017 with chief complaints of abdominal pain and abdominal distention that apparently has been getting worse over the last week or 8 days. The patient with these symptoms was evaluated by the ER physician. The patient did have a CT abdominal pelvis which shows ascites. acute findings. The patient abdominal pain has been mostly dull aching pain for about a week and now intensity about 4 to 5 out of 10 and no radiation. The patient denies having any nausea, vomiting, or any diarrhea with it. The patient denies having any fever or any chills. The patient did have large volume paracentesis done on 11/04/2017 with a removal of 6 L of straw-colored fluid, which has been sent for the . Fluid was yellow. It is about 20/50 RBC, high 60 nucleated cells. Glucose was 192. LDH was 88. Serology is pending. He also has hepatitis serologies with IgE the IgM has been equivocal. B and C has been negative. The patient has developed abdominal wall redness that apparently started yesterday and has progressively gotten worse. However, the patient not running any fever and did not have any elevated white count. He has been on oral Augmentin. I was asked to see the patient regarding his abdominal wall cellulitis. REVIEW OF SYSTEMS: CONSTITUTIONAL: Positive for weakness. Denies any high-grade fever. EYES no complaint. ENT no complaint. RESPIRATORY: Shortness of breath. CARDIOVASCULAR: No complaint. GENITOURINARY no complaint. GASTROINTESTINAL: As per HPI. MUSCULOSKELETAL no complaint. INTEGUMENTARY as per HPI. PSYCHOLOGICAL no complaint. ENDOCRINE no complaint. NEUROLOGIC no complaint. PAST MEDICAL HISTORY: Asthma, chronic back pain. PAST SURGICAL HISTORY: Right hip replacement, amputation of left hand. SOCIAL HISTORY: The patient is currently an every day smoker. Daily drink. No drug use. FAMILY HISTORY: Mother with history of COPD. Father history of cancer. ALLERGIES: No known drug allergies. MEDICATIONS: Include the patient currently on Tylenol, Gwynn, Ventolin, Lasix, and Narcan, Zofran, MiraLAX, Aldactone and Augmentin. EXAMINATION: Blood pressure 104/56 with pulse of 100, temperature 97.8. He is 94% on room air. General description is a middle-aged male lying in bed in no distress. No tachypnea or accessory muscle of respiration use. HEENT: Shows no pallor or scleral icterus. Oral mucous membranes dry and no visible thrush. Neck: Trachea central. No thyromegaly. LUNGS: Unlabored breathing. Decreased breath sounds in the bases. No wheeze or crackles. Heart S1, S2. Regular rate and rhythm. ABDOMEN: Soft, distended with erythema to the lower abdominal wall area, diffuse swelling, redness. No fluctuation or induration. Extremities: 1+ edema of the feet. Skin examination: No rashes. No mass palpable. NEUROLOGICAL: The patient is awake, alert, oriented time three. Mood and affect normal. LABS: Hemoglobin 15, white count 6.6, BUN of 19, creatinine 0.75. Liver enzymes are normal. Electrolytes are normal. Hepatitis A IgM was equivocal. B and C were negative. The blood cultures on admission has been negative. The peritoneal fluid culture has been negative. DIAGNOSTIC IMPRESSION AND PLAN: Patient admitted with abdominal wall cellulitis. The patient has been admitted to the hospital with new onset ascites, who is status post paracentesis with culture negative making it less likely, hence repeat now. The abdominal wall cellulitis started in hospital after the patient did have a paracentesis more likely from a gram-positive skin valerie. We will start covering him for a possible streptococcal cellulitis with likely pathogen however underlying resistant gram positive such as MRSA not entirely excluded. PLAN: 1. Scout the area of redness. 2. Discontinue the Augmentin. 3. We will start the patient on cefazolin 2 g q.8 hours. 4. Repeat a CBC tomorrow. 5. Depending upon his clinical response, we will adjust the medication further if needed. Thank you for this consultation. We will follow this patient with you. MMODL / IJN: [id number] /
[2017-11-08 12:52] LABS: Glucose,Whole Blood 189 mg/dL (75-99)
--- NOTE | 2017-11-08 13:24 | P.PN ---
Subjective Progress Note Date: 11/08/17 Principal diagnosis: Ascites 57-year-old male admitted with new onset of ascites and lower extremity edema. Denies fever or chills. Status post therapeutic diagnostic paracentesis 6 L removed cytology and ascitic albumin pending. Presently maintained on Lasix and Aldactone twice daily. Nursing reports episode of asymptomatic ectopy this afternoon. LFTs within normal limits. Objective - Vital Signs Vital signs: Vital Signs Temp 97.5 F L 11/08/17 12:54 Pulse 92 11/08/17 12:54 Resp 18 11/08/17 12:54 BP 107/78 11/08/17 12:54 Pulse Ox 93 L 11/08/17 12:54 Intake & Output 11/07/17 11/08/17 11/08/17 18:59 06:59 18:59 Intake Total 1262 790 472 Output Total 625 225 Balance 1262 165 247 Intake: IV 15 normal saline @5ml/hr 15 Intake, IV Titration 15 Amount Furosemide 250 mg In 15 Sodium Chloride 0.9% 225 ml @ 5 MG/HR 5 mls/hr IVP .Q24H [facility] Rx#:[id number] Oral 1262 760 472 Output: Urine 150 225 Stool 475 Other: Voiding Method Urinal # Voids 3 - Exam General appearance: The patient is alert, oriented, in no acute distress. HET: Head is normocephalic and atraumatic. Pupils are equal and reactive. Oropharynx is clear without lesions. Neck: Supple without lymphadenopathy. Trachea midline. Heart: S1 S2. Regular rate and rhythm. Lungs: No crackles or wheezes are heard. Abdomen: Soft, nontender, distended with mild ascites with bowel sounds. No peritoneal signs. No palpable organomegaly or masses. Extremities: +2 bilateral lower extremity edema - Labs CBC & Chem 7: 11/08/17 07:25 11/08/17 07:25 Labs: Abnormal Lab Results - Last 24 Hours (Table) 11/08/17 11/08/17 11/08/17 Range/Units 07:25 07:25 12:50 Plt Count 144 L (150-450) k/uL Glucose 145 H (74-99) mg/dL POC Glucose (mg/dL) 189 H (75-99) mg/dL Microbiology - Last 24 Hours (Table) 11/05/17 10:45 Gram Stain - Preliminary Peritoneal Fluid Body Fluid Culture - Preliminary 11/03/17 12:23 Blood Culture - Preliminary Blood No Growth after 96 hours 11/05/17 10:45 Anaerobic Culture - Preliminary Peritoneal Fluid Assessment and Plan (1) Ascites Narrative/Plan: New-onset ascites status post paracentesis cytology and fluid albumin results pending. No history of underlying chronic liver disease however portal hypertension cannot be entirely excluded. Hepatitis serology nonreactive hepatitis A IgM antibody indeterminate; LFTs within normal limits. Other differentials to consider is a cardiac etiology contributing to ascites. Current Visit: Yes Status: Acute Code(s): R18.8 - OTHER ASCITES SNOMED Code(s): 177426460 (2) Anasarca Current Visit: Yes Status: Acute Code(s): R60.1 - GENERALIZED EDEMA SNOMED Code(s): 673283353 (3) Thrombocytopenia Narrative/Plan: Very mild thrombocytopenia chronic liver disease cannot be excluded present platelet count is 144,000. Current Visit: Yes Status: Acute Code(s): D69.6 - THROMBOCYTOPENIA, UNSPECIFIED SNOMED Code(s): 312691867 Plan: 1. Continue with low-salt healthy heart diet. Recommend cardiology consultation. Await fluid cytology and ascitic albumin results. We'll continue to follow with you. Continue with diuretics. Assessment and plan a care discussed with Dr. He
[2017-11-08 14:17] LABS: Calcium 9.3 mg/dL (8.4-10.2)
[2017-11-08 14:20] LABS: Magnesium 1.7 mg/dL (1.6-2.3)
[2017-11-08] MEDS ORDERED: VANCOMYCIN IV PER PHARMACY 1 EACH MISC MISCELLANE PRN (15:07)
[2017-11-08] MEDS ORDERED: VANCOMYCIN 2,250 MG in SODIUM CHLORIDE 0.9% 500 ML IVPB ONE (16:00)
--- NOTE | 2017-11-08 18:57 | PN ---
PROGRESS NOTE DATE OF SERVICE: 11/08/2017 CHIEF COMPLAINT: Anasarca. HISTORY OF PRESENT ILLNESS: This gentleman seems to be responding slowly to the IV Lasix. He is being followed by [facility] now. Cellulitis in the abdomen may be slightly better. He did have another run of PVCs without chest pain or loss of consciousness or dizziness. PHYSICAL EXAM: Breath sounds are heard on both sides. The cardiac is normal, the abdomen remains distended and firm and the cellulitis continues on the lower half, although it is less intense. IMPRESSION: 1. Ascites. 2. Anasarca. 3. Cellulitis of the abdomen. 4. Short run of asymptomatic nonsustained ventricular tachycardia. PLAN: 1. Echocardiogram. 2. Cardiology consult. 3. Check magnesium. 4. Continue diuresis. MMODL / IJN: [id number] /
[2017-11-08] MEDS: FUROSEMIDE 250 MG in SODIUM CHLORIDE 0.9% 225 ML IVP SCH (20:22)
--- NOTE | 2017-11-08 22:24 | PN ---
PROGRESS NOTE DATE OF SERVICE: 11/08/2017 REASON FOR FOLLOWUP: Abdominal wall cellulitis. INTERVAL HISTORY: The patient is currently afebrile. He noticed to have slight worsening of his abdominal wall swelling and redness. He did have some dull aching and pain in the lower abdominal area, intensity of about 3/10-4/10, and no radiation. Currently with no skin breakdown or any drainage. He denies having any chest pain, shortness of breath or cough. No nausea, vomiting or any diarrhea. REVIEW OF SYSTEMS: Positive upon admission. HPI, review of systems have been negative. PAST MEDICAL AND SURGICAL HISTORY: Reviewed. No change. MEDICATIONS: Reviewed. EXAMINATION: Blood pressure 124/73 with a pulse of 97, temperature 98.7. He is 94% on room air. General description is a middle-aged male lying in bed in no distress. RESPIRATORY SYSTEM: Unlabored breathing. Clear to auscultation anteriorly. HEART: S1, S2. Regular rate and rhythm. ABDOMEN: Soft. Still having abdominal distention with redness that has slightly crossed the rei. He is warm to touch. No fluctuation or induration was noted. EXTREMITIES: Trace edema of feet. SKIN: No rash or mass palpable. Neurologically, the patient is awake, alert, oriented. Mood and affect normal. LABS: Hemoglobin 15.7, white count 6.8. BUN of 18, creatinine 0.75. DIAGNOSTIC IMPRESSION AND PLAN: Patient abdominal wall cellulitis that has failed to respond to the IV cefazolin with question of possible methicillin-resistant Staphylococcus aureus. At this time, will discontinue the cefazolin and start the patient on vancomycin, Pharmacy to dose, target of 15 while watching his kidney function closely. Continue supportive care. MMODL / IJN: [id number] /
[2017-11-09] MEDS: ALBUTEROL NEBULIZED 2.5 MG/3 ML INHALATION SCH ×6 (00:01→20:12)
[2017-11-09] MEDS: VANCOMYCIN 2,000 MG in SODIUM CHLORIDE 0.9% 500 ML IVPB SCH ×3 (00:26→16:19)
[2017-11-09] MEDS: HYDROcodone/APAP 7.5-325MG 1 EACH TAB PO PRN ×6 (00:31→22:59)
[2017-11-09] MEDS: SPIRONOLACTONE 25 MG TAB PO SCH ×2 (08:34→21:45)
[2017-11-09] MEDS: POLYETHYLENE GLYCOL 3350 17 GM POWD.PACK PO SCH (08:34)
[2017-11-09] MEDS: ERGOCALCIFEROL 50,000 UNIT CAP PO SCH (08:35)
--- NOTE | 2017-11-09 09:45 | ECHOF ---
Referral Reason:cardiac eval...echocardiogram MEASUREMENTS -------- HEIGHT: 185.4 cm WEIGHT: 140.2 kg BP: 135/88 IVSd: 1.2 cm (0.6 - 1.1) LVIDd: 6.1 cm (3.9 - 5.3) LVPWd: 0.9 cm (0.6 - 1.1) EDV(Teich): 184 ml IVSs: 1.6 cm LVIDs: 5.0 cm LVPWs: 1.5 cm %IVS Thck: 38 % ESV(Teich): 119 ml EF(Teich): 35 % %FS: 17 % SV(Teich): 65 ml LVOT Diam: 2.3 cm LA Diam: 4.7 cm (2.7 - 3.8) RVIDd: 4.2 cm (< 3.3) IVC: 27.17 mm LALs A4C: 6.0 cm LAAs A4C: 25.6 cm LAESV A-L A4C: 92 ml LAESV MOD A4C: 84 ml LALs A2C: 6.2 cm LAAs A2C: 23.8 cm LAESV A-L A2C: 78 ml LAESV MOD A2C: 76 ml LAESV(A-L): 86 ml LAESV Index (A-L): 33.20 ml/m Ao Diam: 3.1 cm (2.0 - 3.7) AV Cusp: 2.1 cm (1.5 - 2.6) EPSS: 1.7 cm MV DecT: 154 ms MV PHT: 36 ms MVA By PHT: 6.1 cm AV Vmax: 1.16 m/s AV maxP.40 mmHg TR Vmax: 2.89 m/s TR maxP.33 mmHg RAP: 15.00 mmHg RVSP: 48.33 mmHg MV EF SLOPE: 59.95 mm/s (70 - 150) MV EXCURSION: 14.01 mm (> 18.000) FINDINGS -------- Atrial fibrillation. This was a technically good study. The left ventricle is mildly dilated. There is borderline concentric left ventricular hypertrophy. Overall left ventricular systolic function is severely impaired with, an EF between 20 - 25 %. The right ventricle is severely enlarged. LA is midly dilated 29-33ml/m2. The right atrium is normal in size. There is mild aortic valve sclerosis. The mitral valve leaflets are mildly thickened. Mild mitral annular calcification present. Modera te mitral regurgitation is present. Moderate tricuspid regurgitation present. There is moderate pulmonary hypertension. The right yao tricular systolic pressure, as measured by Doppler, is 48.33mmHg. Trace/mild (physiologic) pulmonic regurgitation. The aortic root size is normal. The inferior vena cava is dilated with no significant inspiratory collapse which is consistent estima maciej right atrial pressure of >15 mmHg. There is no pericardial effusion. CONCLUSIONS -------- 1. Atrial fibrillation. 2. This was a technically good study. 3. The left ventricle is mildly dilated. 4. There is borderline concentric left ventricular hypertrophy. 5. Overall left ventricular systolic function is severely impaired with, an EF between 20 - 25 %. 6. The right ventricle is severely enlarged. 7. LA is midly dilated 29-33ml/m2. 8. The right atrium is normal in size. 9. There is mild aortic valve sclerosis. 10. The mitral valve leaflets are mildly thickened. 11. Mild mitral annular calcification present. 12. Moderate mitral regurgitation is present. 13. Moderate tricuspid regurgitation present. 14. There is moderate pulmonary hypertension. 15. The right ventricular systolic pressure, as measured by Doppler, is 48.33mmHg. 16. Trace/mild (physiologic) pulmonic regurgitation. 17. The aortic root size is normal. 18. The inferior vena cava is dilated with no significant inspiratory collapse which is consistent es timated right atrial pressure of >15 mmHg. 19. There is no pericardial effusion. PARTS SALESPERSON: Mariela Lynch RDCS
--- NOTE | 2017-11-09 10:41 | P.PN ---
Subjective Progress Note Date: 11/09/17 Principal diagnosis: Ascites 57-year-old male admitted with new onset of ascites and lower extremity edema abdominal cellulitis. Denies fever or chills. Status post therapeutic diagnostic paracentesis 4 days ago 6 L removed cytology and ascitic albumin pending. Hepatitis C IgG antibody nonreactive. Presently maintained on IV infusion Lasix and Aldactone twice daily. Nursing reports episode of asymptomatic ectopy yesterday afternoon cardiology consult did no further ectopy through the night.. LFTs within normal limits. Reports increased abdominal girth tightness this morning. Abdominal cellulitis receiving IV vancomycin. Preliminary blood cultures no growth. Preliminary ascitic fluid cultures no growth. Objective - Vital Signs Vital signs: Vital Signs Temp 97.6 F 11/09/17 07:47 Pulse 96 11/09/17 08:01 Resp 16 11/09/17 07:47 BP 110/79 11/09/17 07:47 Pulse Ox 92 L 11/09/17 07:47 Intake & Output 11/08/17 11/09/17 11/09/17 18:59 06:59 18:59 Intake Total 472 1254.917 800 Output Total 450 675 Balance 22 579.917 800 Weight 133.36 kg 132.5 kg Intake: Intake, IV Titration 134.917 Amount Furosemide 250 mg In 134.917 Sodium Chloride 0.9% 225 ml @ 5 MG/HR 5 mls/hr IVP .Q24H [facility] Rx#:[id number] Oral 472 1120 800 Output: Urine 450 675 Other: # Voids 1 - Exam General appearance: The patient is alert, oriented, in no acute distress. HET: Head is normocephalic and atraumatic. Pupils are equal and reactive. Oropharynx is clear without lesions. Neck: Supple without lymphadenopathy. Trachea midline. Heart: S1 S2. Regular rate and rhythm. Lungs: No crackles or wheezes are heard. Abdomen: Soft, nontender, distended with mild ascites with bowel sounds. Diffuse cellulitis across entire abdomen edge is marked. No peritoneal signs. No palpable organomegaly or masses. Extremities: +2 bilateral lower extremity edema - Labs CBC & Chem 7: 11/08/17 07:25 11/08/17 07:25 Labs: Abnormal Lab Results - Last 24 Hours (Table) 11/08/17 Range/Units 12:50 POC Glucose (mg/dL) 189 H (75-99) mg/dL Microbiology - Last 24 Hours (Table) 11/05/17 10:45 Anaerobic Culture - Final Peritoneal Fluid 11/07/17 21:29 Blood Culture - Preliminary Blood No Growth after 24 hours 11/03/17 12:23 Blood Culture - Preliminary Blood No Growth after 120 hours 11/05/17 10:45 Gram Stain - Preliminary Peritoneal Fluid Body Fluid Culture - Preliminary Assessment and Plan (1) Ascites Narrative/Plan: New-onset ascites status post paracentesis cytology and fluid albumin results pending. No history of underlying chronic liver disease however portal hypertension cannot be entirely excluded. Hepatitis serology nonreactive hepatitis A IgM antibody indeterminate; LFTs within normal limits. Other differentials to consider is a cardiac etiology contributing to ascites. Ascites has worsened over the last few days will discuss with interventional radiology scheduling therapeutic paracentesis. Current Visit: Yes Status: Acute Code(s): R18.8 - OTHER ASCITES SNOMED Code(s): 764966128 (2) Anasarca Current Visit: Yes Status: Acute Code(s): R60.1 - GENERALIZED EDEMA SNOMED Code(s): 200626306 (3) Thrombocytopenia Narrative/Plan: Very mild thrombocytopenia chronic liver disease cannot be excluded present platelet count is 144,000. Current Visit: Yes Status: Acute Code(s): D69.6 - THROMBOCYTOPENIA, UNSPECIFIED SNOMED Code(s): 512766575 (4) Abdominal wall cellulitis Current Visit: Yes Status: Acute Code(s): L03.311 - CELLULITIS OF ABDOMINAL WALL SNOMED Code(s): 86883703 Plan: 1. Continue with diuretics. Will discuss paracentesis with interventional radiology and infectious disease; will obtain ID input regarding paracentesis in the setting of cellulitis. Continue with antibiotics. Low-salt diet. Cardiology consultation. Assessment and plan a care discussed with Dr. He.
[2017-11-09] MEDS: FUROSEMIDE 250 MG in SODIUM CHLORIDE 0.9% 225 ML IVP SCH (12:18)
--- NOTE | 2017-11-09 12:28 | CONS ---
CONSULTATION Mr. Pena is a 57-year-old gentleman who is seen for cardiac evaluation. This patient is admitted on 11/03/2017 with abdominal distention. Patient was found to have a significant ascites and underwent paracentesis. We were requested to see the patient because patient has being having intermittent PVCs and occasional ventricular couplet and triplet. Patient gives a history that he has been gradually gaining weight in his abdomen and it becomes hugely distended over couple of weeks prior to the admission, he does have exertional shortness of breath and some leg edema with a history of orthopnea. The patient says he drinks about 2 to 3 beers per day. There is a questionable small myocardial infarction many years ago. No history of congestive cardiac failure in the past. MEDICATIONS: Includes albuterol updraft, Lipitor, Amaryl, and Ventolin. PAST MEDICAL HISTORY: Includes history of COPD, history of chronic hip pain, right hip replacement, amputation of the left . SOCIAL HISTORY: Patient is currently an everyday smoker. PHYSICAL EXAMINATION: At present reveals a 57-year-old gentleman who does not appear to be in any acute respiratory distress. The heart rate is 96 per minute, oxygen saturation is 92% block, blood pressure is 110/79 mmHg. HEENT examination is negative. Neck is supple. Jugular venous pressure is elevated. Both the carotid pulses are felt. There is no bruit. Chest is symmetrical. Heart, the PMI is not felt. First and second heart sounds are normal. Lungs reveal a few basal rales. Abdomen is distended. There is a free fluid present. Extremities, there is a 2+ pedal edema. Patient's echocardiogram reveals severely impaired left ventricular systolic function with pulmonary hypertension. There was evidence of right atrial pressure elevation. Chest x-ray suggestive of heart failure. Patient's creatinine is 0.75. The paracentesis fluid is suggestive of a transudative, cardiac enzymes are negative. Patient's proBNP level was 1150, which is elevated for his age. FINAL IMPRESSION: This patient has been admitted with abdominal distention and ascites. It appears that the patient has a biventricular failure with severely impaired left ventricular systolic function and at once right heart failure. RECOMMENDATIONS: Patient will be transferred to the selective care unit. I will increase Lasix drip to 10 mg/hour. Continue Aldactone. We will start the patient on Coreg and Zestril. Further adjustment in the medications will be made as necessary. After the patient's congestive heart failure is cleared up, he will need further evaluation with a cardiac catheterization. AP / MARYN: [id number] /
[2017-11-09] MEDS: CEFEPIME 2 GM in SODIUM CHLORIDE 0.9% 50 ML IVPB SCH (15:20)
--- NOTE | 2017-11-09 15:59 | PN ---
PROGRESS NOTE CHIEF COMPLAINT: Anasarca and ascites. HISTORY OF PRESENT ILLNESS: This gentleman is about the same. He is not diuresing well at all. There is consideration to do another paracentesis. Results of the first are not back. PHYSICAL EXAM: Chest is clear. Cardiac exam is normal. The abdomen is very distended and firm once again. The cellulitis seems to be less intense. IMPRESSION: 1. Anasarca and uncontrolled ascites. 2. Cellulitis of the abdominal wall. 3. Several episodes of ventricular tachycardia. PLAN: He may undergo paracentesis again today. MMODL / IJN: [id number] /
[2017-11-09 16:07] LABS: Hepatitis A Antibody IgM Negative
[2017-11-09] MEDS: CARVEDILOL 3.125 MG TAB PO SCH (18:05)
--- NOTE | 2017-11-09 22:08 | PN ---
PROGRESS NOTE DATE OF SERVICE: 11/09/2017 REASON FOR FOLLOWUP: Abdominal wall cellulitis. INTERVAL HISTORY: The patient is currently afebrile, has been breathing comfortably. Patient did have a slight component of tachycardia, for which the patient was transferred to [facility] telemetry. The patient denies having any significant chest pain; occasional shortness of breath. The abdomen remains distended and the erythema has not improved significantly with vancomycin the patient was started on yesterday. PHYSICAL EXAMINATION: Blood pressure 107/72 with a pulse of 102, temperature 96.9. He is 93% on room air. General description is a middle-aged male lying in bed in no distress. RESPIRATORY SYSTEM: Unlabored breathing. Clear to auscultation anteriorly. HEART: S1, S2. Regular rate and rhythm. ABDOMEN: Soft. Remains distended. Erythema persists. Slightly warm to touch. No fluctuation or induration. LABS: Hemoglobin is 15.7, white count 6.9 with a BUN of 18, creatinine 0.75. Peritoneal fluid culture remains negative. Blood culture negative. DIAGNOSTIC IMPRESSION AND PLAN: Patient with extensive abdominal wall cellulitis that started after the patient had paracentesis done. cover for nosocomial gram-negative as well as gram-positive pathogen. In view of no response to the vancomycin, we will add cefepime 2 grams q.12. Recommend holding on any further paracentesis at this time while waiting for the abdominal cellulitis to resolve. May need some aggressive continue with supportive care. MMODL / IJN: [id number] /
[2017-11-10] MEDS: VANCOMYCIN 2,000 MG in SODIUM CHLORIDE 0.9% 500 ML IVPB SCH ×3 (00:28→20:35)
[2017-11-10] MEDS: ALBUTEROL NEBULIZED 2.5 MG/3 ML INHALATION SCH ×6 (00:52→21:09)
[2017-11-10] MEDS: CEFEPIME 2 GM in SODIUM CHLORIDE 0.9% 50 ML IVPB SCH ×2 (04:12→17:21)
[2017-11-10] MEDS: HYDROcodone/APAP 7.5-325MG 1 EACH TAB PO PRN (06:49)
[2017-11-10] MEDS: CARVEDILOL 3.125 MG TAB PO SCH ×2 (06:58→17:51)
[2017-11-10] MEDS ORDERED: VANCOMYCIN TROUGH DUE 1 EACH MISC MISCELLANE ONE (07:00)
[2017-11-10 07:03] LABS: Anion Gap 10 mmol/L; Blood Urea Nitrogen 19 mg/dL (9-20); Calcium 9.4 mg/dL (8.4-10.2); Carbon Dioxide 30 mmol/L (22-30); Chloride 97 mmol/L (98-107); Glucose 169 mg/dL (74-99); Potassium 3.9 mmol/L (3.5-5.1); Sodium 137 mmol/L (137-145)
[2017-11-10] MEDS: POLYETHYLENE GLYCOL 3350 17 GM POWD.PACK PO SCH (10:10)
[2017-11-10] MEDS: SPIRONOLACTONE 25 MG TAB PO SCH ×2 (10:10→20:35)
[2017-11-10] MEDS: LISINOPRIL 2.5 MG TAB PO SCH (10:10)
--- NOTE | 2017-11-10 10:56 | P.PN ---
Subjective Progress Note Date: 11/10/17 Principal diagnosis: Ascites 57-year-old male admitted with new onset of ascites and lower extremity edema abdominal cellulitis. Denies fever or chills. Status post therapeutic diagnostic paracentesis 5 days ago 6 L removed cytology and ascitic albumin pending. Hepatitis C IgG antibody nonreactive. Presently maintained on IV infusion Lasix and Aldactone twice daily. Reports increased abdominal pain worsening redness to abdomen; ID following antibiotics adjusted. Objective - Vital Signs Vital signs: Vital Signs Temp 97.9 F 11/10/17 07:27 Pulse 100 11/10/17 08:24 Resp 16 11/10/17 08:00 BP 111/74 11/10/17 07:27 Pulse Ox 93 L 11/10/17 07:27 Intake & Output 11/09/17 11/10/17 11/10/17 18:59 06:59 18:59 Intake Total 1880 600 240 Output Total 410 368 6516 Balance 1555 100 -960 Weight 131.5 kg Intake: Oral 1880 600 240 Output: Urine 044 174 3060 Other: # Voids 1 2 1 # Bowel Movements 0 0 - Exam General appearance: The patient is alert, oriented, in no acute distress. HET: Head is normocephalic and atraumatic. Pupils are equal and reactive. Oropharynx is clear without lesions. Neck: Supple without lymphadenopathy. Trachea midline. Heart: S1 S2. Regular rate and rhythm. Lungs: No crackles or wheezes are heard. Abdomen: Soft, tender, distended with moderate ascites with bowel sounds. Diffuse cellulitis across entire abdomen edge is marked appears more erythematous than yesterday. No peritoneal signs. No palpable organomegaly or masses. Extremities: +2 bilateral lower extremity edema - Labs CBC & Chem 7: 11/08/17 07:25 11/10/17 06:30 Labs: Abnormal Lab Results - Last 24 Hours (Table) 11/10/17 Range/Units 06:30 Chloride 97 L (98-107) mmol/L Glucose 169 H (74-99) mg/dL Microbiology - Last 24 Hours (Table) 11/05/17 10:45 Gram Stain - Final Peritoneal Fluid Body Fluid Culture - Final 11/07/17 21:29 Blood Culture - Preliminary Blood No Growth after 48 hours 11/03/17 12:23 Blood Culture - Final Blood No Growth after 144 hours 11/05/17 10:45 Anaerobic Culture - Final Peritoneal Fluid Assessment and Plan (1) Ascites Narrative/Plan: New-onset ascites status post paracentesis cytology and fluid albumin results pending. No history of underlying chronic liver disease however portal hypertension cannot be entirely excluded. Hepatitis serology nonreactive hepatitis A IgM antibody indeterminate; LFTs within normal limits. Other differentials to consider is a cardiac etiology contributing to ascites. Ascites has worsened over the last few days will discuss with interventional radiology scheduling therapeutic paracentesis. Current Visit: Yes Status: Acute Code(s): R18.8 - OTHER ASCITES SNOMED Code(s): 000230377 (2) Anasarca Current Visit: Yes Status: Acute Code(s): R60.1 - GENERALIZED EDEMA SNOMED Code(s): 884685150 (3) Thrombocytopenia Narrative/Plan: Very mild thrombocytopenia chronic liver disease cannot be excluded present platelet count is 144,000. Current Visit: Yes Status: Acute Code(s): D69.6 - THROMBOCYTOPENIA, UNSPECIFIED SNOMED Code(s): 130336164 (4) Abdominal wall cellulitis Narrative/Plan: worsening cellulitis; antibiotics adjusted Current Visit: Yes Status: Acute Code(s): L03.311 - CELLULITIS OF ABDOMINAL WALL SNOMED Code(s): 34682914 Plan: 1. Continue with diuretics. Paracentesis on hold secondary to cellulitis and ID recommendations. ID input appreciated. Continue with antibiotics. Low-salt diet. Await cytology and ascitic albumin fluid results. Assessment and plan of care discussed with Dr. He.
[2017-11-10] MEDS ORDERED: IOPAMIDOL-300 CONTRAST 30 ML VIAL (ORAL USE) PO PRN (11:08)
[2017-11-10] MEDS: FUROSEMIDE 250 MG in SODIUM CHLORIDE 0.9% 225 ML IVP SCH (11:17)
[2017-11-10] MEDS: HYDROmorphone 1 MG/ML 1 ML SYRINGE IVP PRN ×3 (11:28→22:03)
[2017-11-10 11:34] LABS: Glucose,Whole Blood 185 mg/dL (75-99)
--- NOTE | 2017-11-10 12:00 | PN ---
PROGRESS NOTE CHIEF COMPLAINT: Anasarca, cellulitis abdominal wall. HISTORY OF PRESENT ILLNESS: This gentleman is not doing well. His abdominal pain is increasing and he is not diuresing off any significant amount of weight. A repeat paracentesis has been recommended, but there was concern about putting the needle through cellulitic tissue. REVIEW OF SYSTEMS: He has had no nausea, vomiting, chills, fever, etc., but the pain is getting worse. PHYSICAL EXAM: His chest is clear. Cardiac exam is normal and the abdomen remains distended, firm, cellulitic and tender. Extremities are edematous. IMPRESSION: 1. Anasarca. 2. Ascites. 3. Cellulitis of the abdominal wall. PLAN: 1. Increase analgesia. 2. Get ultrasound of the abdominal wall, looking for possible subcutaneous abscess. 3. Echocardiogram does demonstrate significant congestive heart failure and this is being followed by Cardiology. MMKIRILLL / IJN: [id number] /
--- NOTE | 2017-11-10 14:20 | P.PN ---
Subjective Progress Note Date: 11/10/17 This is a pleasant 57-year-old gentleman who was admitted on November 03 with abdominal distention and found to have significant ascites. He subsequently underwent paracentesis. We are requested to see the patient because the patient has been having intermittent PVCs, occasional ventricular couplets and triplets. He's had a history of gradually gaining weight and his abdomen which has become significantly distended over the past couple of weeks. He does have exertional shortness of breath as well as leg edema and orthopnea. He has been on Lasix drip at 10 mg an hour as well as Aldactone 100 mg by mouth twice a day. He continues to have significant edema and abdominal distention. And continues to complain of some shortness of breath. Objective - Vital Signs Vital signs: Vital Signs Temp 97.5 F L 11/10/17 11:19 Pulse 104 H 11/10/17 11:59 Resp 18 11/10/17 11:49 BP 101/98 11/10/17 11:19 Pulse Ox 93 L 11/10/17 11:19 Intake & Output 11/09/17 11/10/17 11/10/17 18:59 06:59 18:59 Intake Total 1880 600 469.833 Output Total 182 376 6919 Balance 1555 100 -730.167 Weight 131.5 kg 131.5 kg Intake: Intake, IV Titration 229.833 Amount Furosemide 250 mg In 229.833 Sodium Chloride 0.9% 225 ml @ 10 MG/HR 10 mls/hr IVP .Q24H [facility] Rx#: [id number] Oral 1880 600 240 Output: Urine 007 123 5291 Other: # Voids 1 2 1 # Bowel Movements 0 0 - Exam PHYSICAL EXAMINATION: HEENT: [Head is atraumatic, normocephalic. Pupils equal, round. Neck is supple. There is elevated jugular venous pressure.] HEART EXAMINATION: [Heart sounds regular, S1 and S2 normal. No murmur or gallop heard.] CHEST EXAMINATION:[ Lungs reveal crackles to bilateral bases. No chest wall tenderness is noted on palpation or with deep breathing.] ABDOMEN: [Distended, nontender. Bowel sounds are heard. No organomegaly noted]. EXTREMITIES:[ 2+ peripheral pulses with evidence of 2+ peripheral edema and no calf tenderness noted]. NEUROLOGIC [patient is awake, alert and oriented x3.] . - Labs CBC & Chem 7: 11/08/17 07:25 11/10/17 06:30 Labs: Abnormal Lab Results - Last 24 Hours (Table) 11/10/17 11/10/17 Range/Units 06:30 11:28 Chloride 97 L (98-107) mmol/L Glucose 169 H (74-99) mg/dL POC Glucose (mg/dL) 185 H (75-99) mg/dL Microbiology - Last 24 Hours (Table) 11/05/17 10:45 Gram Stain - Final Peritoneal Fluid Body Fluid Culture - Final 11/07/17 21:29 Blood Culture - Preliminary Blood No Growth after 48 hours 11/03/17 12:23 Blood Culture - Final Blood No Growth after 144 hours 11/05/17 10:45 Anaerobic Culture - Final Peritoneal Fluid Assessment and Plan Assessment: #1 abdominal distention and ascites #2 biventricular heart failure #3 severely impaired LV systolic function #4 nicotine dependence Plan: From cardiology perspective, he'll continue current medications. We'll add Zaroxolyn 2.5 mg by mouth daily. We'll continue to monitor renal function, electrolytes, daily weights and intake and output. We will Continue to follow the patient provide further recommendations accordingly. REGISTERED MEDICAL ASSISTANT note has been reviewed, I agree with a documented findings and plan of care. Patient was seen and examined.
--- NOTE | 2017-11-10 14:37 | US ---
EXAMINATION TYPE: US abdomen limited DATE OF EXAM: 11/10/2017 COMPARISON: CT same date CLINICAL HISTORY: ascites r/o abscess. Abdomen erythema. Hx of Ascites with recent drainage. Pain. Per doctor, look at lower abdominal wall also. No palpable areas. RUQ, RLQ, LUQ, and LLQ scanned. Trace amount of fluid seen in RLQ. Edema seen in lower abdominal wa ll. Subcutaneous edema channels are noted. IMPRESSION: Limited exam. Minimal ascites. Subcutaneous edema, correlate for cellulitis.
--- NOTE | 2017-11-10 14:50 | CT ---
EXAMINATION TYPE: CT abdomen w con DATE OF EXAM: 11/10/2017 COMPARISON: Prior CT abdomen pelvis 11/03/2017 HISTORY: Ascites CT DLP: 1723 mGycm Automated exposure control for dose reduction was used. TECHNIQUE: Helical acquisition of images was performed from the lung bases through the top of iliac crest to include entire abdomen. CONTRAST: Performed with Oral Contrast and with IV Contrast, patient injected with 100 mL of Isovue 300. FINDINGS: There is fluid density within the subcutaneous fat bilaterally. Skin thickening is noted. F luid density deep to the musculature noted along the left flank. Small umbilical hernia contains fat. There may be a small hiatal hernia. Heart size is stable. LUNG BASES: Small right effusion is present at the right lung base. LIVER/GB: There is some minimal fluid around the liver. Some reflux of contrast into the hepatic vein s is noted, correlate for possible heart failure. The liver is enlarged and shows low attenuation pos sibly due to hepatic steatosis. Gallbladder is normal. PANCREAS: Somewhat fatty replaced. SPLEEN: No significant abnormality is seen. ADRENALS: No significant abnormality is seen. KIDNEYS: Poor contrast excretion is noted, correlate for possible renal insufficiency BOWEL: Question some bowel loops with wall thickening, consider enteritis and hypoproteinemia. LYMPH NODES: No significant abnormality is appreciated. OSSEOUS STRUCTURES: No significant interval change is seen. FREE AIR: No Free Air visible ASCITES: Improved as compared to prior exam. RETROPERITONEAL ADENOPATHY: No Retroperitoneal Adenopathy visible. IMPRESSION: CORRELATE FOR CELLULITIS VERSUS EDEMA. IMPROVEMENT IN ASCITES. SMALLER RIGHT PLEURAL EFFUSION. CONSID ER UNDERLYING HEART FAILURE, RENAL INSUFFICIENCY AND HEPATOMEGALY, HEPATIC STEATOSIS. POSSIBLE ENTERI TIS. ADDITIONAL FINDINGS ABOVE.
[2017-11-10] MEDS: METOLAZONE 2.5 MG TAB PO SCH (17:19)
--- NOTE | 2017-11-10 23:57 | PN ---
PROGRESS NOTE DATE OF SERVICE: 11/10/2017. REASON FOR FOLLOWUP: Abdominal wall cellulitis. INTERVAL HISTORY: The patient is currently afebrile. He is breathing slightly comfortably. Denies significant chest pain cough. He still has some abdominal wall swelling and redness which are not significant, did not get worse or improve over the last 48 hours, and no diarrhea. EXAMINATION: Blood pressure 102/75 with a pulse of 104, temperature 96.9. He is 96% on room air. General description is a middle-aged male up in the bed in no distress. RESPIRATORY SYSTEM: Unlabored breathing. Clear to auscultation anteriorly. HEART: S1, S2. Regular rate and rhythm. ABDOMEN: Soft, remains to be distended with erythema which has gone significantly across the line placed around it. No fluctuation or induration. EXTREMITIES: Edema of feet. LABS: White count 6.9 with a BUN of 19, creatinine 0.73. Ultrasound with minimal ascites. DIAGNOSTIC IMPRESSION AND PLAN: Patient with abdominal wall cellulitis, started after the patient did have a paracentesis for new onset ascites, was initially on vancomycin, now significant improvement. Cefepime was added; however, did not have significant improvement. Hence, will switch him over to Fortaz 2 g q.8h and continue vancomycin, watching his clinical course closely as well as cultures. Continue supportive care. MMODL / IJN: [id number] /
[2017-11-11] MEDS: ALBUTEROL NEBULIZED 2.5 MG/3 ML INHALATION SCH ×6 (00:52→20:29)
[2017-11-11] MEDS: CARVEDILOL 3.125 MG TAB PO SCH ×2 (06:29→16:43)
[2017-11-11] MEDS: HYDROmorphone 1 MG/ML 1 ML SYRINGE IVP PRN ×4 (06:51→23:34)
[2017-11-11] MEDS: LISINOPRIL 2.5 MG TAB PO SCH (10:08)
[2017-11-11] MEDS: METOLAZONE 2.5 MG TAB PO SCH (10:08)
[2017-11-11] MEDS: POLYETHYLENE GLYCOL 3350 17 GM POWD.PACK PO SCH (10:10)
[2017-11-11] MEDS: SPIRONOLACTONE 25 MG TAB PO SCH ×2 (10:10→22:25)
--- NOTE | 2017-11-11 11:18 | P.PN ---
Subjective Progress Note Date: 11/11/17 Principal diagnosis: Ascites 57-year-old male admitted with new onset of ascites and lower extremity edema abdominal cellulitis. Denies fever or chills. Status post therapeutic diagnostic paracentesis 6 days ago 6 L removed cytology negative but ascitic albumin pending. Hepatitis C IgG antibody nonreactive. Presently maintained on IV infusion Lasix and Aldactone twice daily. ECHO EF 20-25%. CT abdomen; cellulitis versus edema; ascites improved. Reports improvement abdominal pain and redness to abdomen; ID following antibiotics adjusted. Objective - Vital Signs Vital signs: Vital Signs Temp 97 F L 11/11/17 08:21 Pulse 84 11/11/17 08:21 Resp 14 11/11/17 08:21 BP 105/67 11/11/17 08:21 Pulse Ox 97 11/11/17 08:09 Intake & Output 11/10/17 11/11/17 11/11/17 18:59 06:59 18:59 Intake Total 3169.833 480 Output Total 1800 1700 Balance 1369.833 -1700 480 Weight 131.5 kg 127.6 kg Intake: IV 40 normal saline @5ml/hr 40 Intake, IV Titration 729.833 Amount Cefepime 2 gm In Sodium 50 Chloride 0.9% 50 ml @ 100 mls/hr IVPB Q12H [facility] Rx# :[id number] Furosemide 250 mg In 229.833 Sodium Chloride 0.9% 225 ml @ 10 MG/HR 10 mls/hr IVP .Q24H [facility] Rx#: [id number] Vancomycin 2,000 mg In 450 Sodium Chloride 0.9% 500 ml @ 167 mls/hr IVPB Q12HR [facility] Rx#:[id number] Oral 2400 480 Output: Urine 1800 1700 Other: Voiding Method Urinal Urinal # Voids 1 1 # Bowel Movements 0 - Exam General appearance: The patient is alert, oriented, in no acute distress. HET: Head is normocephalic and atraumatic. Pupils are equal and reactive. Oropharynx is clear without lesions. Neck: Supple without lymphadenopathy. Trachea midline. Heart: S1 S2. Regular rate and rhythm. Lungs: No crackles or wheezes are heard. Abdomen: Soft, mildly tender, less distended with mild to moderate ascites softer with bowel sounds. Diffuse cellulitis across entire abdomen but more muted today than yesterday. No peritoneal signs. No palpable organomegaly or masses. Extremities: +2 bilateral lower extremity pedal edema - Labs CBC & Chem 7: 11/08/17 07:25 11/10/17 06:30 Labs: Abnormal Lab Results - Last 24 Hours (Table) 11/10/17 Range/Units 11:28 POC Glucose (mg/dL) 185 H (75-99) mg/dL Microbiology - Last 24 Hours (Table) 11/07/17 21:29 Blood Culture - Preliminary Blood No Growth after 72 hours 11/05/17 10:45 Gram Stain - Final Peritoneal Fluid Body Fluid Culture - Final Assessment and Plan (1) Ascites Narrative/Plan: New-onset ascites status post paracentesis cytology and fluid albumin results pending. No history of underlying chronic liver disease however portal hypertension cannot be entirely excluded. Hepatitis serology nonreactive hepatitis A IgM antibody indeterminate; LFTs within normal limits. Other differentials to consider is a cardiac etiology contributing to ascites. Ascites cellulitis is improving. No plans for paracentesis at this time. Current Visit: Yes Status: Acute Code(s): R18.8 - OTHER ASCITES SNOMED Code(s): 854165402 (2) Anasarca Current Visit: Yes Status: Acute Code(s): R60.1 - GENERALIZED EDEMA SNOMED Code(s): 128562971 (3) Thrombocytopenia Narrative/Plan: Very mild thrombocytopenia chronic liver disease cannot be excluded present platelet count is 144,000. Current Visit: Yes Status: Acute Code(s): D69.6 - THROMBOCYTOPENIA, UNSPECIFIED SNOMED Code(s): 667574800 (4) Abdominal wall cellulitis Narrative/Plan: Improving cellulitis; antibiotics adjusted Current Visit: Yes Status: Acute Code(s): L03.311 - CELLULITIS OF ABDOMINAL WALL SNOMED Code(s): 04309221 Plan: 1. Continue with diuretics per cardiology recommendations. Paracentesis on hold secondary to cellulitis not necessary at this time. Recent CT imaging shows improvement in ascites. Continue with antibiotics. Low-salt diet. Await ascitic albumin fluid results. Patient could benefit from an outpatient colonoscopy in the near future. We'll follow as needed. Return to office in 3- 4 weeks after discharge. Assessment and plan of care discussed with Dr. He.
[2017-11-11 12:19] LABS: Anion Gap 15 mmol/L; Blood Urea Nitrogen 24 mg/dL (9-20); Calcium 10.1 mg/dL (8.4-10.2); Carbon Dioxide 31 mmol/L (22-30); Chloride 87 mmol/L (98-107); Glucose 271 mg/dL (74-99); Potassium 3.9 mmol/L (3.5-5.1); Sodium 133 mmol/L (137-145)
[2017-11-11] MEDS: FUROSEMIDE 250 MG in SODIUM CHLORIDE 0.9% 225 ML IVP SCH (12:29)
--- NOTE | 2017-11-11 13:01 | PN ---
PROGRESS NOTE DATE OF SERVICE: 11/11/2017 REASON FOR FOLLOWUP: Abdominal wall cellulitis and possible drug rash. INTERVAL HISTORY: The patient currently afebrile. He was noticed to have developing rash on the chest and in the groin area. The abdominal wound wall redness seemed to be about the same with no worsening. The patient remains to be itching. Denies having any chest pain or shortness of breath or any cough or a tongue swelling. No diarrhea. PHYSICAL EXAMINATION: On examination, blood pressure 105/67 with a pulse of 100, temperature 97. He is 97% on room air. General description is a middle-aged male lying in bed in no distress. RESPIRATORY SYSTEM: Unlabored breathing, clear to auscultation anteriorly. HEART: S1, S2. Regular rate and rhythm. ABDOMEN: Soft, no tenderness. EXTREMITIES: No edema of feet. EXAMINATION OF ABDOMINAL WALL: The redness persists. maculopapular rash extending to the upper chest and groin area. LABS: BUN of 24, creatinine 0.84. Culture has been negative. DIAGNOSTIC IMPRESSION AND PLAN: Patient with abdominal wall cellulitis now with possibly developing rash more likely medication effect with redness, not responding to the vancomycin as well as Fortaz could be the same allergic reaction for rash rather than true cellulitis in a patient with no fever or elevated white count. Will at this time discontinue vancomycin as well as Fortaz. We will start the patient on Solu-Medrol and Benadryl and watch his clinical course closely. discussed with the patient's RN as well as with the wall scraper on the floor. MMODL / IJN: [id number] /
[2017-11-11] MEDS: methylPREDNISolone SOD SUCCI 125 MG/2 ML VIAL IV SCH ×2 (13:23→16:48)
[2017-11-11 13:33] LABS: Hemoglobin A1C 7.7 % (4.0-6.0)
[2017-11-11] MEDS: diphenhydrAMINE 25 MG CAP PO PRN (14:10)
--- NOTE | 2017-11-11 15:45 | P.PN ---
Subjective Progress Note Date: 11/11/17 This is a pleasant 57-year-old gentleman who was admitted on November 03 with abdominal distention and found to have significant ascites. He subsequently underwent paracentesis. We are requested to see the patient because the patient has been having intermittent PVCs, occasional ventricular couplets and triplets. He's had a history of gradually gaining weight and his abdomen which has become significantly distended over the past couple of weeks. He does have exertional shortness of breath as well as leg edema and orthopnea. He has been on Lasix drip at 10 mg an hour as well as Aldactone 100 mg by mouth twice a day. We added Zaroxolyn 2.5 mg by mouth daily yesterday. Patient's edema is improved. His weight is down about 4 kg. Objective - Vital Signs Vital signs: Vital Signs Temp 97.0 F L 11/11/17 15:36 Pulse 92 11/11/17 15:36 Resp 14 11/11/17 15:36 BP 98/64 11/11/17 15:36 Pulse Ox 91 L 11/11/17 15:36 Intake & Output 11/10/17 11/11/17 11/11/17 18:59 06:59 18:59 Intake Total 3169.833 730 Output Total 1800 1700 200 Balance 1369.833 -1700 530 Weight 131.5 kg 127.6 kg Intake: IV 40 normal saline @5ml/hr 40 Intake, IV Titration 729.833 250 Amount Cefepime 2 gm In Sodium 50 Chloride 0.9% 50 ml @ 100 mls/hr IVPB Q12H [facility] Rx# :[id number] Furosemide 250 mg In 229.833 250 Sodium Chloride 0.9% 225 ml @ 10 MG/HR 10 mls/hr IVP .Q24H [facility] Rx#: [id number] Vancomycin 2,000 mg In 450 Sodium Chloride 0.9% 500 ml @ 167 mls/hr IVPB Q12HR [facility] Rx#:[id number] Oral 2400 480 Output: Urine 1800 1700 200 Other: Voiding Method Urinal Urinal # Voids 1 1 1 # Bowel Movements 0 0 - Exam PHYSICAL EXAMINATION: HEENT: [Head is atraumatic, normocephalic. Pupils equal, round. Neck is supple. There is elevated jugular venous pressure.] HEART EXAMINATION: [Heart sounds regular, S1 and S2 normal. No murmur or gallop heard.] CHEST EXAMINATION:[ Lungs reveal crackles to bilateral bases. No chest wall tenderness is noted on palpation or with deep breathing.] ABDOMEN: [Distended, nontender. Bowel sounds are heard. No organomegaly noted]. EXTREMITIES:[ 2+ peripheral pulses with evidence of 1-2+ peripheral edema and no calf tenderness noted]. NEUROLOGIC [patient is awake, alert and oriented x3.] . - Labs CBC & Chem 7: 11/08/17 07:25 11/11/17 10:49 Labs: Abnormal Lab Results - Last 24 Hours (Table) 11/10/17 11/11/17 Range/Units 06:30 10:49 Sodium 133 L (137-145) mmol/L Chloride 87 L (98-107) mmol/L Carbon Dioxide 31 H (22-30) mmol/L BUN 24 H (9-20) mg/dL Glucose 271 H (74-99) mg/dL Hemoglobin A1c 7.7 H (4.0-6.0) % Microbiology - Last 24 Hours (Table) 11/07/17 21:29 Blood Culture - Preliminary Blood No Growth after 72 hours Assessment and Plan Assessment: #1 abdominal distention and ascites #2 biventricular heart failure #3 severely impaired LV systolic function #4 nicotine dependence Plan: From cardiology perspective, medications were reviewed and will continue the same. Continue to monitor intake and output, daily weights as well as renal function and electrolytes. We will continue to follow the patient provide further recommendations accordingly. EMAIL CAMPAIGN MANAGER note has been reviewed, I agree with a documented findings and plan of care. Patient was seen and examined.
[2017-11-11 16:30] LABS: Glucose,Whole Blood 228 mg/dL (75-99)
[2017-11-11] MEDS: INSULIN ASPART 100 UNIT/ML 1 ML 10 ML VIAL SQ SCH ×2 (16:42→22:23)
--- NOTE | 2017-11-11 18:52 | PN ---
PROGRESS NOTE CHIEF COMPLAINT: Ascites and anasarca. HISTORY OF PRESENT ILLNESS: This gentleman does not feel he is doing any better. He started to develop a pruritic maculopapular rash on the upper abdomen and some on the back. PHYSICAL EXAM: His abdomen remains erythematous and distended. Chest is clear and his cardiac sounds normal. IMPRESSION: 1. Anasarca. 2. Ascites. 3. Congestive heart failure. 4. Rash. 5. Elevated blood sugar. PLAN: 1. Benadryl for the rash. 2. Follow blood sugars. 3. Hemoglobin A1c. MMODL / IJN: [id number] /
[2017-11-11 20:46] LABS: Glucose,Whole Blood 436 mg/dL (75-99)
[2017-11-11] MEDS: AMOXIC-POT CLAV 875-125MG 1 EACH TAB PO SCH (22:24)
[2017-11-12] MEDS: ALBUTEROL NEBULIZED 2.5 MG/3 ML INHALATION SCH ×7 (00:32→23:40)
[2017-11-12] MEDS: diphenhydrAMINE 25 MG CAP PO PRN ×2 (03:12→21:37)
[2017-11-12 06:14] LABS: Glucose,Whole Blood 318 mg/dL (75-99)
[2017-11-12] MEDS: INSULIN ASPART 100 UNIT/ML 1 ML 10 ML VIAL SQ SCH ×4 (06:56→21:22)
[2017-11-12] MEDS: CARVEDILOL 3.125 MG TAB PO SCH ×2 (06:56→17:39)
[2017-11-12 07:34] LABS: Anion Gap 13 mmol/L; Blood Urea Nitrogen 31 mg/dL (9-20); Calcium 10.2 mg/dL (8.4-10.2); Carbon Dioxide 35 mmol/L (22-30); Chloride 85 mmol/L (98-107); Glucose 292 mg/dL (74-99); Potassium 3.8 mmol/L (3.5-5.1); Sodium 133 mmol/L (137-145)
[2017-11-12] MEDS: VANCOMYCIN 2,000 MG in SODIUM CHLORIDE 0.9% 500 ML IVPB SCH (07:58)
[2017-11-12] MEDS ORDERED: VANCOMYCIN TROUGH DUE 1 EACH MISC MISCELLANE ONE (08:00)
[2017-11-12] MEDS: HYDROmorphone 1 MG/ML 1 ML SYRINGE IVP PRN ×4 (08:17→21:37)
[2017-11-12] MEDS: LISINOPRIL 2.5 MG TAB PO SCH (09:06)
[2017-11-12] MEDS: SPIRONOLACTONE 25 MG TAB PO SCH ×2 (09:06→21:25)
[2017-11-12] MEDS: AMOXIC-POT CLAV 875-125MG 1 EACH TAB PO SCH ×2 (09:06→21:23)
[2017-11-12] MEDS: METOLAZONE 2.5 MG TAB PO SCH (09:06)
[2017-11-12] MEDS: POLYETHYLENE GLYCOL 3350 17 GM POWD.PACK PO SCH (09:06)
[2017-11-12 11:38] LABS: Glucose,Whole Blood 374 mg/dL (75-99)
[2017-11-12 12:13] LABS: HCT 49.7 % (39.0-53.0); HGB 15.8 gm/dL (13.0-17.5); MCH 29.2 pg (25.0-35.0); MCHC 31.7 g/dL (31.0-37.0); MCV 92.2 fL (80.0-100.0); Mean Platelet Volume 10.1; Platelet Count 185 k/uL (150-450); RBC 5.39 m/uL (4.30-5.90); RDW 13.2 % (11.5-15.5); WBC 12.1 k/uL (3.8-10.6)
--- NOTE | 2017-11-12 12:59 | P.PN ---
Subjective Progress Note Date: 11/12/17 This is a pleasant 57-year-old gentleman who was admitted on November 03 with abdominal distention and found to have significant ascites. He subsequently underwent paracentesis. We are requested to see the patient because the patient has been having intermittent PVCs, occasional ventricular couplets and triplets. He's had a history of gradually gaining weight and his abdomen which has become significantly distended over the past couple of weeks. He does have exertional shortness of breath as well as leg edema and orthopnea. He has been on Lasix drip at 10 mg an hour as well as Aldactone 100 mg by mouth twice a day , and Zaroxolyn 2.5 mg by mouth daily yesterday. Patient's edema is improved. His weight is down about 13 kg. Rash on abdomen remains, ID discontinued antibiotics yesterday. Objective - Vital Signs Vital signs: Vital Signs Temp 96.7 F L 11/12/17 08:00 Pulse 100 11/12/17 11:11 Resp 16 11/12/17 08:00 BP 97/67 11/12/17 08:00 Pulse Ox 96 11/12/17 08:00 Intake & Output 11/11/17 11/12/17 11/12/17 18:59 06:59 18:59 Intake Total 1330 240 Output Total 950 2000 925 Balance 829 -1999 -219 Weight 119.8 kg Intake: Intake, IV Titration 250 Amount Furosemide 250 mg In 250 Sodium Chloride 0.9% 225 ml @ 10 MG/HR 10 mls/hr IVP .Q24H [facility] Rx#: [id number] Oral 1080 240 Output: Urine 950 2000 925 Other: Voiding Method Urinal Urinal # Voids 1 1 # Bowel Movements 0 - Exam PHYSICAL EXAMINATION: HEENT: [Head is atraumatic, normocephalic. Pupils equal, round. Neck is supple. There is elevated jugular venous pressure.] HEART EXAMINATION: [Heart sounds regular, S1 and S2 normal. No murmur or gallop heard.] CHEST EXAMINATION:[ Lungs reveal crackles to bilateral bases. No chest wall tenderness is noted on palpation or with deep breathing.] ABDOMEN: [Distended, nontender. Bowel sounds are heard. No organomegaly noted. Rash noted over her abdomen and back.]. EXTREMITIES:[ 2+ peripheral pulses with evidence of 1+ peripheral edema and no calf tenderness noted]. NEUROLOGIC [patient is awake, alert and oriented x3.] . - Labs CBC & Chem 7: 11/12/17 06:57 11/12/17 06:57 Labs: Abnormal Lab Results - Last 24 Hours (Table) 11/10/17 11/11/17 11/11/17 Range/Units 06:30 16:30 20:45 WBC (3.8-10.6) k/uL Sodium (137-145) mmol/L Chloride (98-107) mmol/L Carbon Dioxide (22-30) mmol/L BUN (9-20) mg/dL Glucose (74-99) mg/dL POC Glucose (mg/dL) 228 H 436 H (75-99) mg/dL Hemoglobin A1c 7.7 H (4.0-6.0) % 11/12/17 11/12/17 11/12/17 Range/Units 06:10 06:57 06:57 WBC 12.1 H (3.8-10.6) k/uL Sodium 133 L (137-145) mmol/L Chloride 85 L (98-107) mmol/L Carbon Dioxide 35 H (22-30) mmol/L BUN 31 H (9-20) mg/dL Glucose 292 H (74-99) mg/dL POC Glucose (mg/dL) 318 H (75-99) mg/dL Hemoglobin A1c (4.0-6.0) % 11/12/17 Range/Units 11:36 WBC (3.8-10.6) k/uL Sodium (137-145) mmol/L Chloride (98-107) mmol/L Carbon Dioxide (22-30) mmol/L BUN (9-20) mg/dL Glucose (74-99) mg/dL POC Glucose (mg/dL) 374 H (75-99) mg/dL Hemoglobin A1c (4.0-6.0) % Microbiology - Last 24 Hours (Table) 11/07/17 21:29 Blood Culture - Preliminary Blood No Growth after 96 hours Assessment and Plan Assessment: #1 abdominal distention and ascites #2 biventricular heart failure #3 severely impaired LV systolic function #4 nicotine dependence Plan: From cardiology perspective, we will stop Lasix drip and put the patient on Lasix 40 mg IV push every 12 hours. Anticipate the patient will be discharged home in the next 24-48 hours. We'll continue to follow the patient had further recommendations accordingly. SHORT HAUL DRIVER note has been reviewed, I agree with a documented findings and plan of care. Patient was seen and examined.
[2017-11-12] MEDS ORDERED: FUROSEMIDE 10 MG/ML 4 ML VIAL IV SCH (16:00)
[2017-11-12 16:25] LABS: Glucose,Whole Blood 285 mg/dL (75-99)
[2017-11-12] MEDS: TRIAMCINOLONE 0.1% CREAM 80 GM TUBE TOPICAL SCH ×2 (17:37→21:25)
[2017-11-12 20:30] LABS: Glucose,Whole Blood 337 mg/dL (75-99)
[2017-11-12] MEDS: FUROSEMIDE 10 MG/ML 4 ML VIAL IV SCH (21:24)
--- NOTE | 2017-11-12 22:26 | PN ---
PROGRESS NOTE CHIEF COMPLAINT: Ascites. HISTORY OF PRESENT ILLNESS: This gentleman is feeling a little bit better. Lower extremity edema is essentially resolved. Still has some abdominal swelling and edema. Cellulitis on abdominal wall is about the same and now he has developed a macular papular pruritic dermatitis on top of that, back, and upper abdomen. PHYSICAL EXAM: Chest is clear. Cardiac exam is unremarkable. Abdomen is still protuberant. Cellulitis abdominal wall is improved. IMPRESSION: 1. Ascites. 2. Anasarca. 3. Congestive heart failure. 4. Cellulitis of the lower abdominal wall. 5. Dermatitis. PLAN: 1. Topical steroid cream q.i.d. for the dermatitis. 2. Watch blood sugars. Blood sugars are still elevated even though systemic steroids have been stopped. MMODL / IJN: [id number] /
--- NOTE | 2017-11-12 22:50 | CONS ---
CONSULTATION REASON FOR CONSULT: Possible nephropathy. HISTORY OF PRESENT ILLNESS: Patient is a 57-year-old male who was admitted to the hospital on 11/03/2017 with complaints off abdominal rash and increased abdominal distention. The patient had gained weight. He had paracentesis done following which he has been complaining of a significant rash in the abdomen. He states his skin is a tender and he has been scratching quite a bit. REVIEW OF LABS: Shows serum creatinine at about 0.8-0.7 mg/dL. Serum sodium is on the lower side at [address] a [address] of the abdomen done on initial admission, which showed hepatomegaly and ascites. No abnormalities were noted in the kidneys. The patient had another CT done on 11/10/2017, which suggested some renal insufficiency given the poor contrast excretion in the kidneys. Patient is currently maintained on Lasix. He had been on a Lasix drip. He has had good urine output. He is voiding in the urinal. Weight is down significantly from 127 to 119.8 kg. Not sure if this is accurate. Urine output is documented at 2.9 L for 24 hours. PAST MEDICAL HISTORY: Asthma, osteoarthritis. 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 SOCIAL HISTORY: Positive for smoking. No history of drug abuse or alcohol abuse. MEDICATIONS: Medications at home prior to admission included inhalers, Cordell, vitamin D2. ALLERGIES: None. REVIEW OF SYSTEMS: As per HPI. Other systems negative. EXAMINATION: Currently patient is comfortable, awake. He is not in any acute distress. Blood pressure is 140/74, heart rate 103 per minute, patient is afebrile. Examination of the heart S1, S2. Examination lungs bilateral breath sounds are heard. Decreased breath sounds at bases. Abdomen is soft, obese with abdominal skin tenderness noted. There is a rash noted in the anterior abdominal wall going down to the thighs and on the back as well. It is maculopapular. Examination lower extremities shows no significant edema. LAB: Show sodium 133, potassium 3.8, chloride 85, CO2 is 35, BUN of 31, serum creatinine 0.82. ASSESSMENT: 1. Volume overload, currently improved. Agree with discontinuation of Lasix drip. The patient has had good urine output. His BUN is higher and he is currently not on any steroids. However, he was on IV steroids, which would explain his elevated BUN. Currently, patient has good urine output and his GFR is not significantly decreased. We will continue to monitor and continue to avoid significant nephrotoxic agents. May continue with a small dose of SERENA inhibitors that the patient is taking. However, I do see that occasionally his blood pressure drops to 93 and 97 mmHg, which if persists, I will discontinue the lisinopril. 2. Ascites, needs to be worked up. 3. Volume overload, currently improving. Echocardiogram showed ejection fraction 20- 25 percent with mildly dilated left atrium and severely enlarged right ventricle with moderate pulmonary hypertension. PLAN: Continue with IV push Lasix. Repeat labs in a.m. Continue with the Zaroxolyn and lisinopril for now. If the blood pressure remains low I will discontinue the lisinopril. Thank you for this consultation. Will continue to follow the patient with you during his hospitalization. AP / OCTAVIANO: [id number] /
[2017-11-13] MEDS: HYDROmorphone 1 MG/ML 1 ML SYRINGE IVP PRN ×4 (03:39→21:14)
[2017-11-13] MEDS: ALBUTEROL NEBULIZED 2.5 MG/3 ML INHALATION SCH ×6 (03:54→22:43)
[2017-11-13 06:23] LABS: Glucose,Whole Blood 267 mg/dL (75-99)
[2017-11-13] MEDS: INSULIN ASPART 100 UNIT/ML 1 ML 10 ML VIAL SQ SCH ×6 (06:38→21:09)
[2017-11-13] MEDS: CARVEDILOL 3.125 MG TAB PO SCH ×2 (06:38→17:47)
[2017-11-13] MEDS: METOLAZONE 2.5 MG TAB PO SCH (08:36)
[2017-11-13] MEDS: LISINOPRIL 2.5 MG TAB PO SCH (08:36)
[2017-11-13] MEDS: AMOXIC-POT CLAV 875-125MG 1 EACH TAB PO SCH ×2 (08:37→19:49)
[2017-11-13] MEDS: POLYETHYLENE GLYCOL 3350 17 GM POWD.PACK PO SCH (08:37)
[2017-11-13] MEDS: SPIRONOLACTONE 25 MG TAB PO SCH ×2 (08:37→19:49)
[2017-11-13] MEDS: TRIAMCINOLONE 0.1% CREAM 80 GM TUBE TOPICAL SCH ×4 (08:37→21:16)
[2017-11-13] MEDS: FUROSEMIDE 10 MG/ML 4 ML VIAL IV SCH ×2 (08:37→19:49)
[2017-11-13 12:02] LABS: Glucose,Whole Blood 330 mg/dL (75-99)
--- NOTE | 2017-11-13 13:19 | PN ---
PROGRESS NOTE CHIEF COMPLAINT: Anasarca. HISTORY OF PRESENT ILLNESS: This gentleman is having a little bit more difficulty with pruritus and his rash. The abdominal distention remains same. He has been seen by med-renal and there was nothing being added from their perspective. PHYSICAL EXAM: Chest is clear. Cardiac exam is normal. The abdomen is protuberant. He still has some erythema and dermatitis. IMPRESSION: 1. Anasarca. 2. Congestive heart failure. 3. Cellulitis of the abdominal wall. 4. Pleuritic dermatitis. 5. Elevated blood sugars. PLAN: I have restarted insulin until his blood sugars come down. If nothing further develops or is to be done, he could probably be discharged soon. MMODL / IJN: [id number] /
[2017-11-13] MEDS ORDERED: predniSONE 10 MG TAB PO SCH (13:45)
--- NOTE | 2017-11-13 14:25 | PN ---
PROGRESS NOTE Patient is seen for followup for hyperkalemia. His renal function is fairly well preserved with creatinine staying 0.7-0.8 mg/dL. The patient is mildly hyponatremic. He has a rash on his abdomen and he states it is slightly worse. The patient is maintained on Benadryl, which he states is not helping. He was on Solu-Medrol initially, but his blood sugars were significantly elevated, therefore, it was discontinued. PHYSICAL EXAMINATION: Blood pressure is 97/59, heart rate 92 per minute. The patient is afebrile. Examination of the heart S1, S2. Examination lungs bilateral breath sounds are heard. Abdomen is soft and nontender. There is significant rash, maculopapular rash in the abdominal wall as well as in the chest and upper back and lower extremities and thighs. Examination lower extremities shows no significant edema. LAB: Show sodium 133 from yesterday, serum creatinine 0.82, calcium was 10.2. ASSESSMENT: 1. Mild hyponatremia, mainly hypervolemic. Repeat labs today. The patient has been on a Lasix drip which was eventually changed to IV push Lasix. 2. A maculopapular rash which appears to be allergic in nature. Currently Benadryl is not helping as much. I will add prednisone and we can increase the coverage with insulin if the blood sugars are elevated. 3. Mild hypercalcemia, maintained on vitamin D. We will check vitamin D level and PTH level. PLAN: Add oral prednisone for the rash and repeat labs today and in a.m. MMMARIANNE / MARYN: [id number] /
[2017-11-13 14:28] LABS: Anion Gap 12 mmol/L; Blood Urea Nitrogen 35 mg/dL (9-20); Calcium 10.1 mg/dL (8.4-10.2); Carbon Dioxide 36 mmol/L (22-30); Chloride 85 mmol/L (98-107); Glucose 373 mg/dL (74-99); Potassium 4.5 mmol/L (3.5-5.1); Sodium 133 mmol/L (137-145)
[2017-11-13 16:34] LABS: Glucose,Whole Blood 326 mg/dL (75-99)
[2017-11-13] MEDS: predniSONE 20 MG TAB PO SCH (17:45)
[2017-11-13 20:53] LABS: Glucose,Whole Blood 220 mg/dL (75-99)
[2017-11-13] MEDS ORDERED: INSULIN DETEMIR 100 UNIT/ML 10 ML VIAL SQ SCH (21:00)
--- NOTE | 2017-11-13 23:34 | PN ---
PROGRESS NOTE DATE OF SERVICE: 11/13/2017. REASON FOR FOLLOWUP: Drug rash and a question of abdominal cellulitis. INTERVAL HISTORY: The patient is afebrile. He is currently complaining of rash that seems to be getting extensive now. Swelling went down. We will discontinue with concern for the elevated blood sugar. Currently on the prednisone. Currently Benadryl with prednisone being added by Nephrology today. The patient denies significant chest pain, shortness of breath or cough and no diarrhea. EXAMINATION: Blood pressure 119/85 with a pulse of 96, temperature 97.5. He is 91% on room air. GENERAL DESCRIPTION: A middle aged male up in the room in no distress. RESPIRATORY SYSTEM: Unlabored breathing with decreased breath sounds in the bases. No wheeze. HEART: S1, S2. Regular rate and rhythm. ABDOMEN: Soft, no tenderness. SKIN: Maculopapular rash, significantly extensive now. LABS: BUN of 25, creatinine 0.89. The peritoneal fluid culture has been negative. DIAGNOSTIC IMPRESSION AND PLAN: Patient admitted to the hospital with new onset ascites for which the patient was started on Lasix and Aldactone. Subsequently the patient developed abdominal wall rash with initial concern for possible cellulitis. Subsequently extension of this rash and no response to antibiotic therapy. Clinically doubt there is any evidence of cellulitis and the augment should be discontinued with Aldactone and Lasix being the 2 medications started before this rash started. Could be either one of these medications causing this rash. Recommend discontinuation of Aldactone now to see his response to improvement in the rash. If the rash persists, Lasix should be discontinued and alternative such as Rocephin should be considered. Going to monitor his clinical course closely. Continue supportive care. MMODL / IJN: [id number] /
[2017-11-14] MEDS: ALBUTEROL NEBULIZED 2.5 MG/3 ML INHALATION PRN (00:54)
[2017-11-14 05:59] LABS: Glucose,Whole Blood 261 mg/dL (75-99)
[2017-11-14] MEDS: ALBUTEROL NEBULIZED 2.5 MG/3 ML INHALATION SCH ×4 (07:04→19:22)
[2017-11-14] MEDS: INSULIN ASPART 100 UNIT/ML 1 ML 10 ML VIAL SQ SCH ×7 (07:11→22:01)
[2017-11-14] MEDS: CARVEDILOL 3.125 MG TAB PO SCH ×2 (07:11→17:37)
[2017-11-14] MEDS ORDERED: ALBUTEROL NEBULIZED 2.5 MG/3 ML INHALATION SCH (08:00)
[2017-11-14] MEDS: POLYETHYLENE GLYCOL 3350 17 GM POWD.PACK PO SCH (08:08)
[2017-11-14] MEDS: FUROSEMIDE 10 MG/ML 4 ML VIAL IV SCH ×2 (08:08→22:01)
[2017-11-14] MEDS: METOLAZONE 2.5 MG TAB PO SCH (08:08)
[2017-11-14] MEDS: TRIAMCINOLONE 0.1% CREAM 80 GM TUBE TOPICAL SCH ×4 (08:09→22:04)
[2017-11-14] MEDS: predniSONE 20 MG TAB PO SCH (08:09)
[2017-11-14] MEDS: HYDROmorphone 1 MG/ML 1 ML SYRINGE IVP PRN ×3 (08:19→20:48)
[2017-11-14] MEDS: diphenhydrAMINE 25 MG CAP PO PRN (08:19)
[2017-11-14 09:33] LABS: Vitamin D 25 Hydroxy 18.3 ng/mL (30.0-100.0)
[2017-11-14 11:55] LABS: Glucose,Whole Blood 333 mg/dL (75-99)
[2017-11-14] MEDS: LISINOPRIL 2.5 MG TAB PO SCH (12:16)
[2017-11-14] MEDS: HYDROcodone/APAP 7.5-325MG 1 EACH TAB PO PRN (12:16)
[2017-11-14 13:28] LABS: Parathyroid Hormone Intact 39.5 pg/mL (14.0-72.0)
[2017-11-14] MEDS: IOPAMIDOL-300 CONTRAST 30 ML VIAL (ORAL USE) PO PRN ×2 (14:39→15:37)
[2017-11-14 15:19] LABS: Basophils % (A) 0 %; Eosinophils # (A) 0.2 k/uL (0-0.7); Eosinophils % (A) 2 %; HCT 53.6 % (39.0-53.0); HGB 17.3 gm/dL (13.0-17.5); Lymphocytes # (A) 1.4 k/uL (1.0-4.8); Lymphocytes % (A) 13 %; MCHC 32.3 g/dL (31.0-37.0); Mean Platelet Volume 8.6; Monocytes # (A) 0.6 k/uL (0-1.0); Monocytes % (A) 6 %; Neutrophils # (A) 8.2 k/uL (1.3-7.7); Neutrophils % (A) 77 %; Platelet Count 185 k/uL (150-450); RBC 5.77 m/uL (4.30-5.90); RDW 13.2 % (11.5-15.5); WBC 10.6 k/uL (3.8-10.6)
[2017-11-14 15:29] LABS: ALT 31 U/L (21-72); AST 20 U/L (17-59); Albumin 4.6 g/dL (3.5-5.0); Alkaline Phosphatase 60 U/L (38-126); Anion Gap 14 mmol/L; Blood Urea Nitrogen 32 mg/dL (9-20); Calcium 10.2 mg/dL (8.4-10.2); Carbon Dioxide 29 mmol/L (22-30); Chloride 90 mmol/L (98-107); Glucose 277 mg/dL (74-99); Potassium 4.8 mmol/L (3.5-5.1); Sodium 133 mmol/L (137-145); Total Bilirubin 1.3 mg/dL (0.2-1.3); Total Protein 7.5 g/dL (6.3-8.2)
--- NOTE | 2017-11-14 16:08 | XR ---
EXAMINATION TYPE: XR chest 2V DATE OF EXAM: 11/14/2017 COMPARISON: Prior chest x-ray 11/03/2017 HISTORY: Congestive heart failure, asthma TECHNIQUE: Frontal and lateral views of the chest are obtained. FINDINGS: There is no focal air space opacity, pleural effusion, or pneumothorax seen. The cardiac silhouette size is stable, heart size may be accentuated by rotation, there are overlying cardiac josé miguel ds. Prominent lung volume could be indicative of COPD. The osseous structures are intact. IMPRESSION: No acute cardiopulmonary process.
[2017-11-14 16:38] LABS: Glucose,Whole Blood 288 mg/dL (75-99)
--- NOTE | 2017-11-14 16:47 | CT ---
EXAMINATION TYPE: CT abdomen pelvis w con DATE OF EXAM: 11/14/2017 COMPARISON: 11/10/2017 HISTORY: ascites, abd pain CT DLP: 1648.8 mGycm Automated exposure control for dose reduction was used. TECHNIQUE: Helical acquisition of images was performed from the lung bases through the pelvis. CONTRAST: Performed with Oral Contrast and with IV Contrast, patient injected with 100 mL of Isovue 300. FINDINGS: Lung bases are clear. There is no pleural effusion. Heart is enlarged. Liver spleen pancreas gallbladder appear normal. Bile ducts are not dilated. There is no adrenal mass . Kidneys show satisfactory contrast opacification. There is no hydronephrosis. There is tiny amount of fluid in the pelvis. Bladder distends smoothly. There is right hip prosthesis. There is no evidenc e of a pelvic mass. There are multiple diverticula in the sigmoid colon. There is no evidence of dive rticulitis. There is subcutaneous edema over the abdomen. Appendix is not seen. There is no sign of a ppendicitis. There is no evidence of bowel obstruction. IMPRESSION: MINIMAL FREE FLUID IN THE PELVIS. THERE IS CLEARING OF PLEURAL FLUID COMPARED TO LAST EXAM. THERE IS DECREASED ASCITES COMPARED TO OLD EXAM. THERE IS DECREASED SUBCUTANEOUS EDEMA AROUND THE ABDOMEN. CAR DIOMEGALY.
--- NOTE | 2017-11-14 17:50 | PN ---
PROGRESS NOTE The patient is seen for followup for hypervolemia. He is currently maintained on IV Lasix. He has been diuresing well. The patient is complaining of itching in his rash, which has not improved. I started him on oral prednisone yesterday. Blood sugars have been running on the high side. PHYSICAL EXAMINATION: Blood pressure was 112/75, heart rate 101 per minute. He is afebrile. Examination of the heart S1, S2. Examination of the lungs bilateral breath sounds are heard. Abdomen is soft and distended with a maculopapular rash noted extending into the chest, back, and thighs. No significant edema is noted in the lower extremities. 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 LABS: Sodium 133, potassium 4.8, BUN 32, serum creatinine 0.7. Hemoglobin was 17.3 g/dL. ASSESSMENT: 1. Lower extremity edema and hypervolemia, currently improved. Continue with current dose of Lasix. 2. Rash likely allergic started on prednisone yesterday. 3. Type 2 diabetes, recently diagnosed with elevated blood sugars secondary to steroids. 4. Mild hypercalcemia. PTH was not significantly elevated. Vitamin D was low, which needs to be replaced. PLAN: Is to continue vitamin D supplementation. Continue with SERENA inhibitors. Continue current dose of diuretics. The patient will likely need IV steroids. MMODL / IJN: [id number] /
--- NOTE | 2017-11-14 19:05 | PN ---
PROGRESS NOTE CHIEF COMPLAINT: Congestive heart failure, ascites, anasarca, and maculopapular rash. HISTORY OF PRESENT ILLNESS: This gentleman's abdomen is slowly going down. He still is complaining of discomfort in the abdomen and back. He does not feel the Vicodin is helping. Blood sugars are also staying up and his insulin will be raised. PHYSICAL EXAM: Chest is fairly clear. Cardiac exam is normal and the abdomen is protuberant and more soft than it has been. Cellulitis is beginning to subside as is the rash. He is back on steroids which is pushing his blood sugar out of range and his insulin will be increased. IMPRESSION: 1. Congestive heart failure. 2. Anasarca and ascites. 3. Cellulitis of the abdominal wall. 4. Pruritic dermatitis. PLAN: 1. Stop Vicodin and go back to Dilaudid. 2. Increase activity. 3. Raise Levemir to 50 units. MMODL / IJN: [id number] /
[2017-11-14 21:22] LABS: Glucose,Whole Blood 334 mg/dL (75-99)
--- NOTE | 2017-11-14 21:47 | PN ---
PROGRESS NOTE DATE OF SERVICE: 11/14/2017. REASON FOR FOLLOWUP: Drug rash. INTERVAL HISTORY: The patient is currently afebrile and rash has slightly decreased in intensity. The patient denies having any chest pain, some shortness of breath. No nausea, vomiting. No abdominal pain and no diarrhea. EXAMINATION: Blood pressure 110/76 with a pulse of 98, temperature 97.5. He is 94% on room air. General description is an elderly male lying in bed in no distress. Respiratory system: Unlabored breathing, decreased breath sounds in the bases. No wheeze. Heart S1, S2. Regular rate and rhythm. Abdomen soft. Slightly distended. Skin examination: Rash has slightly decreased in intensity. LABS: Hemoglobin 7.3, white count 8.6, BUN of 32 with a creatinine 0.71. DIAGNOSTIC IMPRESSION AND PLAN: Patient with extensive rash, more likely drug and more likely secondary to the that has been discontinued. Short course of treatment with Benadryl. Clinically doubt cellulitis. Plan for systemic antibiotic therapy. MMODL / IJN: [id number] /
[2017-11-14] MEDS: INSULIN DETEMIR 100 UNIT/ML 10 ML VIAL SQ SCH (22:01)
[2017-11-15 07:02] LABS: Glucose,Whole Blood 213 mg/dL (75-99)
[2017-11-15] MEDS: ALBUTEROL NEBULIZED 2.5 MG/3 ML INHALATION SCH ×4 (07:09→20:22)
[2017-11-15] MEDS: predniSONE 20 MG TAB PO SCH (09:03)
[2017-11-15] MEDS: LISINOPRIL 2.5 MG TAB PO SCH (09:03)
[2017-11-15] MEDS: METOLAZONE 2.5 MG TAB PO SCH (09:03)
[2017-11-15] MEDS: CARVEDILOL 3.125 MG TAB PO SCH ×2 (09:03→17:37)
[2017-11-15] MEDS: INSULIN ASPART 100 UNIT/ML 1 ML 10 ML VIAL SQ SCH ×7 (09:04→21:23)
[2017-11-15] MEDS: FUROSEMIDE 10 MG/ML 4 ML VIAL IV SCH ×2 (09:05→21:22)
[2017-11-15] MEDS: HYDROmorphone 1 MG/ML 1 ML SYRINGE IVP PRN ×3 (09:07→21:23)
[2017-11-15] MEDS: TRIAMCINOLONE 0.1% CREAM 80 GM TUBE TOPICAL SCH ×4 (09:12→21:48)
[2017-11-15] MEDS: POLYETHYLENE GLYCOL 3350 17 GM POWD.PACK PO SCH (09:13)
[2017-11-15 11:08] LABS: Glucose,Whole Blood 206 mg/dL (75-99)
--- NOTE | 2017-11-15 16:27 | PN ---
PROGRESS NOTE DATE OF SERVICE: 11/15/2017. REASON FOR FOLLOWUP: 1. Generalized drug rash likely secondary to the Aldactone. 2. No cellulitis. INTERVAL HISTORY: The patient is currently afebrile. He is breathing comfortably. Rash to the abdominal wall as well as the lower chest area has decreased in intensity. Denies having any shortness of breath. No diarrhea. EXAMINATION: Blood pressure 112/74 with a pulse of 97, temperature 97.9. He is 92% on room air. General description is a middle aged male lying in bed in no distress. RESPIRATORY SYSTEM: Unlabored breathing. Clear to auscultation anteriorly. HEART: S1, S2. Regular rate and rhythm. ABDOMEN: Soft, no tenderness. The rash has decreased in intensity. No new rash was noted. LABS: No new labs have been obtained today. DIAGNOSTIC IMPRESSION AND PLAN: Patient with abdominal wall as well as chest wall rash, more likely secondary to Aldactone that has been discontinued. Overall decreased intensity of the rash. To continue with a short course of steroids along with Benadryl. No need for systemic antibiotic therapy. Continue supportive care. MMODL / IJN: [id number] /
[2017-11-15 16:56] LABS: Glucose,Whole Blood 422 mg/dL (75-99)
[2017-11-15 20:38] LABS: Glucose,Whole Blood 415 mg/dL (75-99)
[2017-11-15] MEDS: INSULIN DETEMIR 100 UNIT/ML 10 ML VIAL SQ SCH (21:22)
--- NOTE | 2017-11-15 21:45 | PN ---
PROGRESS NOTE The patient is seen for followup for an volume overload. He has had an allergic reaction for which patient was started on prednisone. His renal function is fairly stable. He is tolerating the diuretics. Currently the patient is on Lasix 40 mg q.12 hours and metolazone 2.5 mg daily. We do not have labs today. However, yesterday, serum creatinine was 0.7 mg/dL. PHYSICAL EXAMINATION: Blood pressure is 112/74, heart rate 97 per minute. He is afebrile. HEART: S1, S2. LUNGS: Bilateral breath sounds are heard. Abdomen is soft, obese. There is a maculopapular rash noted. It is extending up into the chest in the left axillary region and it is also extending towards the back. The rash, however, appears to be slightly improved from yesterday. 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 Examination of lower extremity shows trace edema bilaterally. LABS: No labs available today. ASSESSMENT: 1. Volume overload, currently stable. Continue with current dose of Lasix. However, we will check renal profile in a.m. as there are no labs available today. 2. Mild hypercalcemia with low vitamin D level. The PTH was not significantly high. Continue to monitor for now. 3. Abdominal wall rash, maintained on prednisone. 4. Ascites status post paracentesis. Normal liver enzymes. PLAN: Continue with current dose of diuretics. Repeat labs in a.m.. MMKIRILLL / IJN: [id number] /
[2017-11-15] MEDS: ALBUTEROL NEBULIZED 2.5 MG/3 ML INHALATION PRN (23:34)
[2017-11-16] MEDS: HYDROmorphone 1 MG/ML 1 ML SYRINGE IVP PRN ×2 (03:33→10:04)
[2017-11-16 06:59] LABS: Glucose,Whole Blood 139 mg/dL (75-99)
[2017-11-16] MEDS: ALBUTEROL NEBULIZED 2.5 MG/3 ML INHALATION SCH ×4 (07:09→18:59)
[2017-11-16] MEDS: CARVEDILOL 3.125 MG TAB PO SCH ×2 (08:12→17:53)
[2017-11-16] MEDS: ERGOCALCIFEROL 50,000 UNIT CAP PO SCH (08:12)
[2017-11-16] MEDS: METOLAZONE 2.5 MG TAB PO SCH (08:13)
[2017-11-16] MEDS: predniSONE 20 MG TAB PO SCH (08:13)
[2017-11-16] MEDS: LISINOPRIL 2.5 MG TAB PO SCH (08:13)
[2017-11-16] MEDS: TRIAMCINOLONE 0.1% CREAM 80 GM TUBE TOPICAL SCH ×4 (08:13→21:37)
[2017-11-16] MEDS: FUROSEMIDE 10 MG/ML 4 ML VIAL IV SCH ×2 (08:14→21:35)
[2017-11-16] MEDS: INSULIN ASPART 100 UNIT/ML 1 ML 10 ML VIAL SQ SCH ×4 (08:15→17:55)
[2017-11-16] MEDS: POLYETHYLENE GLYCOL 3350 17 GM POWD.PACK PO SCH (08:16)
[2017-11-16 08:44] LABS: Calcium 10.3 mg/dL (8.4-10.2); Glucose 151 mg/dL (74-99); Potassium 4.2 mmol/L (3.5-5.1); Sodium 136 mmol/L (137-145)
[2017-11-16 08:46] LABS: Anion Gap 16 mmol/L; Blood Urea Nitrogen 33 mg/dL (9-20); Carbon Dioxide 28 mmol/L (22-30); Chloride 92 mmol/L (98-107)
[2017-11-16 11:28] LABS: Glucose,Whole Blood 248 mg/dL (75-99)
--- NOTE | 2017-11-16 13:03 | P.GSCN ---
History of Present Illness Consult date: 11/16/17 Reason for Consult: Abdominal pain History of present illness: 57-year-old male presents with multiple complaints. Today we were consulted to evaluate for possible umbilical hernia. The patient has a history recently of new onset ascites. That is still being worked up. He also had a bad abdominal wall rash that was thought to be drug related. Most of his symptoms have improved. He is left now with some tenderness and firmness beneath the umbilicus midway between the pubic symphysis and the umbilicus. Recent CAT scan reviewed. Patient has extensive abdominal wall edema but no hernia is seen. Review of Systems The patient denies any acute changes in vision or hearing, no dysphagia or odynophagia, no chest pain or shortness of breath, no dysuria or hematuria, no headache, no runny nose, no rectal bleeding or melena, no unexplained weight loss Past Medical History Past Medical History: Asthma Additional Past Medical History / Comment(s): chronic hip pain, back pinched nerves History of Any Multi-Drug Resistant Organisms: None Reported Additional Past Surgical History / Comment(s): right hip replace, amputation left hand Past Anesthesia/Blood Transfusion Reactions: No Reported Reaction Past Psychological History: No Psychological Hx Reported Smoking Status: Current every day smoker Past Alcohol Use History: Daily Past Drug Use History: None Reported - Past Family History Mother Family Medical History: COPD Father Family Medical History: Cancer Medications and Allergies Home Medications Medication Instructions Recorded Confirmed Type Albuterol Inhaler [Ventolin Hfa 1 - 2 puff INHALATION RT-Q6H PRN 11/03/17 History Inhaler] Albuterol Nebulized [Ventolin 2.5 mg INHALATION RT-Q4H PRN 11/03/17 11/03/17 History Nebulized] Ergocalciferol [Vitamin D2] 50,000 unit PO Q14D 11/03/17 11/03/17 History HYDROcodone/APAP 7.5-325MG [[place] 1 - 2 tab PO Q4H PRN 11/03/17 11/03/17 History 7.5-325] Allergies Allergy/AdvReac Type Severity Reaction Status Date / Time No Known Allergies Allergy Verified 11/03/17 14:21 Surgical - Exam Vital Signs Temp Pulse Resp BP Pulse Ox 97.5 F L 113 H 18 129/91 96 11/03/17 11:50 11/03/17 11:50 11/03/17 11:50 11/03/17 11:50 11/03/17 11:50 Physical exam: General: Well-developed, well-nourished HEENT: Normocephalic, sclerae nonicteric Abdomen: Obese, slightly distended, no visible rash currently, mild induration and tenderness in the fat between the umbilicus and pubic symphysis Extremities: No edema Neuro: Alert and oriented Results - Labs 11/14/17 15:09 11/16/17 07:50 Abnormal Lab Results - Last 24 Hours (Table) 11/15/17 11/15/17 11/16/17 Range/Units 16:53 20:37 06:57 Sodium (137-145) mmol/L Chloride (98-107) mmol/L BUN (9-20) mg/dL Glucose (74-99) mg/dL POC Glucose (mg/dL) 422 H 415 H 139 H (75-99) mg/dL Calcium (8.4-10.2) mg/dL 11/16/17 11/16/17 Range/Units 07:50 11:26 Sodium 136 L (137-145) mmol/L Chloride 92 L (98-107) mmol/L BUN 33 H (9-20) mg/dL Glucose 151 H (74-99) mg/dL POC Glucose (mg/dL) 248 H (75-99) mg/dL Calcium 10.3 H (8.4-10.2) mg/dL Diabetes panel 11/16/17 Range/Units 07:50 Sodium 136 L (137-145) mmol/L Potassium 4.2 (3.5-5.1) mmol/L Chloride 92 L (98-107) mmol/L Carbon Dioxide 28 (22-30) mmol/L BUN 33 H (9-20) mg/dL Creatinine 0.79 (0.66-1.25) mg/dL Glucose 151 H (74-99) mg/dL Calcium 10.3 H (8.4-10.2) mg/dL Calcium panel 11/16/17 Range/Units 07:50 Calcium 10.3 H (8.4-10.2) mg/dL Pituitary panel 11/16/17 Range/Units 07:50 Sodium 136 L (137-145) mmol/L Potassium 4.2 (3.5-5.1) mmol/L Chloride 92 L (98-107) mmol/L Carbon Dioxide 28 (22-30) mmol/L BUN 33 H (9-20) mg/dL Creatinine 0.79 (0.66-1.25) mg/dL Glucose 151 H (74-99) mg/dL Calcium 10.3 H (8.4-10.2) mg/dL Adrenal panel 11/16/17 Range/Units 07:50 Sodium 136 L (137-145) mmol/L Potassium 4.2 (3.5-5.1) mmol/L Chloride 92 L (98-107) mmol/L Carbon Dioxide 28 (22-30) mmol/L BUN 33 H (9-20) mg/dL Creatinine 0.79 (0.66-1.25) mg/dL Glucose 151 H (74-99) mg/dL Calcium 10.3 H (8.4-10.2) mg/dL Assessment and Plan (1) Abdominal pain Narrative/Plan: No evidence of hernia at this time. Painful area seems to represent inflamed fatty tissue. Possibly on the basis of recent abdominal wall edema and ascites. Continue observation. Follow-up if symptoms persist or increase. Current Visit: Yes Status: Acute Code(s): R10.9 - UNSPECIFIED ABDOMINAL PAIN SNOMED Code(s): 97327986
[2017-11-16] MEDS: HYDROmorphone 2 MG TAB PO PRN ×2 (16:22→22:59)
[2017-11-16 17:28] LABS: Glucose,Whole Blood 241 mg/dL (75-99)
--- NOTE | 2017-11-16 17:34 | PN ---
PROGRESS NOTE The patient is seen for followup for hypervolemia. This morning he is complaining of pain in his abdomen and there is an area of tenderness and induration. Surgical consult has been obtained. PHYSICAL EXAMINATION: Blood pressure was 99/68, heart rate 104 per minute. He is afebrile. Examination of the heart: S1, S2. Examination of the lungs: Bilateral breath sounds are heard. Abdomen is soft. There is tenderness noted in the mid abdomen and around the umbilicus. There is induration noted as well. Examination lower extremity shows trace edema. SALES CLOSER exam is grossly intact. LABS: Show serum creatinine 0.79, BUN is 33, and sodium of 136, potassium 4.2. ASSESSMENT: 1. Hypervolemia with the lower extremity edema and ascites currently improved. Patient remains on IV Lasix which I will continue. His renal function is very stable including the BUN. The patient is also maintained on low-dose SERENA inhibitors, which we can continue. 2. Abdominal wall cellulitis with the abdominal wall edema and rash. At this time, I am not sure if there is an acute component of infection. The patient is not on any antibiotics. He is maintained on prednisone for the rash. 3. Macular papular rash, fairly stable. 4. Hypertension, currently controlled. PLAN: Continue with current dose of Lasix. Monitor for any signs of infection. MMODL / IJN: [id number] /
--- NOTE | 2017-11-16 17:49 | PN ---
PROGRESS NOTE DATE OF SERVICE: 11/16/2017 REASON FOR FOLLOWUP: Drug rash, likely Aldactone. INTERVAL HISTORY: The patient is afebrile. The patient's rash to the abdominal wall as well as the chest and groin area has decreased in intensity. Denies significant chest pain, shortness of breath. No abdominal pain and no diarrhea. PHYSICAL EXAMINATION: Blood pressure is 99/68 with a pulse of 80, temperature 97.1. He is 96% on room air. General description is a middle-aged male up in the bed in no distress. RESPIRATORY SYSTEM: Unlabored breathing. Clear to auscultation anteriorly. HEART: S1, S2. Regular rate and rhythm. ABDOMEN: Soft. Overall rash has decreased in intensity. LABS: BUN of 33, creatinine 0.79. DIAGNOSTIC IMPRESSION AND PLAN: Patient with a generalized rash, more likely secondary to Aldactone. That has been discontinued. Overall rash has decreased in intensity. Currently with no symptoms of a secondary cellulitis; hence no need for any systemic antibiotic therapy. Patient to continue with a short course of Benadryl as well as Mycolog cream. No need for systemic antibiotic therapy. Continue with supportive care. MMODL / IJN: [id number] /
--- NOTE | 2017-11-16 18:19 | PN ---
PROGRESS NOTE CHIEF COMPLAINT: Anasarca. HISTORY OF PRESENT ILLNESS: This gentleman is doing better, but his sugars are still slightly high. The abdomen is becoming less protuberant and the cellulitis is clearing. He still has an area of induration around the umbilicus. It is wondered if this could be an infected or incarcerated umbilical hernia. He is feeling much better. PHYSICAL EXAM: Chest is clear. Cardiac is normal. The abdomen is less distended. There is a firmness around the umbilicus. There is no redness or discharge. IMPRESSION: 1. Anasarca and ascites. 2. Congestive heart failure. 3. Cellulitis of the abdominal wall. 4. ? incarcerated umbilical hernia. 5. Uncontrolled diabetes. PLAN: 1. Consult Surgery to assess the umbilical area. 2. Increase insulin by raising Levemir from 50-60 units and NovoLog from 10-12 before meals. He will probably be able to go home in the next day or 2. MMODL / IJN: [id number] /
--- NOTE | 2017-11-16 18:55 | PN ---
PROGRESS NOTE DATE OF SERVICE: 11/15/2017. CHIEF COMPLAINT: Ascites, congestive heart failure and uncontrolled diabetes. HISTORY OF PRESENT ILLNESS: This gentleman is doing much better each day. Cellulitis is improving and itching is clearing. The abdominal distention is going down. His blood sugars were elevated, however, because of steroids. PHYSICAL EXAM: Chest is clear. The cardiac exam is normal. The abdomen is much less distended. IMPRESSION: 1. Ascites and anasarca. 2. Congestive heart failure. 3. Cellulitis of the abdominal wall. PLAN: Increase insulin and probably will be able to discharge soon once his sugars are down. MMODL / IJN: [id number] /
[2017-11-16 20:03] LABS: Glucose,Whole Blood 264 mg/dL (75-99)
[2017-11-16] MEDS ORDERED: INSULIN DETEMIR 100 UNIT/ML 10 ML VIAL SQ SCH (21:00)
[2017-11-16 21:20] VITALS: RESP 18
[2017-11-17] MEDS: HYDROmorphone 2 MG TAB PO PRN ×2 (05:11→11:32)
[2017-11-17 05:15] VITALS: BP 109/73; TEMP 97.8
[2017-11-17 06:57] LABS: Glucose,Whole Blood 223 mg/dL (75-99)
[2017-11-17] MEDS: ALBUTEROL NEBULIZED 2.5 MG/3 ML INHALATION SCH ×5 (07:15→15:52)
[2017-11-17] MEDS: METOLAZONE 2.5 MG TAB PO SCH (07:52)
[2017-11-17] MEDS: CARVEDILOL 3.125 MG TAB PO SCH (07:52)
[2017-11-17] MEDS: FUROSEMIDE 10 MG/ML 4 ML VIAL IV SCH (07:52)
[2017-11-17] MEDS: LISINOPRIL 2.5 MG TAB PO SCH (07:52)
[2017-11-17] MEDS: POLYETHYLENE GLYCOL 3350 17 GM POWD.PACK PO SCH (07:52)
[2017-11-17] MEDS: INSULIN ASPART 100 UNIT/ML 1 ML 10 ML VIAL SQ SCH ×2 (07:53→13:12)
[2017-11-17] MEDS: predniSONE 20 MG TAB PO SCH (07:53)
[2017-11-17] MEDS: TRIAMCINOLONE 0.1% CREAM 80 GM TUBE TOPICAL SCH ×2 (07:54→14:19)
--- NOTE | 2017-11-17 10:09 | CDI ---
Last Revision, February 2017 Documentation Clarification Form Date: 11/17/17 From: Lolita Corrales RN Admit Date: 11/03/2017 2:33:00 PM Patient Name: Kermit Pena Visit Number: [id number] ATTENTION: The Clinical Documentation Specialists (CDI) and [facility] Coding Staff appreciate your assistance in clarifying documentation. Please respond to the clarification below the line at the bottom and electronically sign. The CDI & [facility] Coding staff will review the response and follow-up if needed. Please note: Queries are made part of the Legal Health Record. If you have any questions, please contact the author of this message via ITS. Dr. Marshall Mccloud MD, Can you please clarify the following documentation? Pt. presented with abdominal pain. Admitted with Anasarca & Ascites H&P 11/03: "No evidence of heart failure". Cardiology Consult 11/09: "It appears that the patient has a biventricular failure with severely impaired left ventricular systolic function and at once right heart failure". PN 11/10: Echocardiogram does demonstrate significant congestive heart failure History/Risk Factors: Chronic COPD, DM 2, Asthma, smoker Clinical Indicators: VS on admission: T 97.5, P 113, R 18, 129/91, 96% RA, on 11/17 95% RA BNP: ON 11/04: 1150, On 11/14: 958 Echocardiogram Results: EF between 20 - 25 %. Chest X Ray: No evidence for acute pulmonary disease. Treatment: Was on Lasix drip now IV 40mg q 12 hr. Monitor labs Pt. is on telemetry Heart Healthy diet Daily weights In your professional opinion, can you please clarify the acuity and type of CHF if known? Systolic Heart Failure: Acute Chronic Acute on Chronic Systolic & Diastolic Heart Failure: Acute Chronic Acute on Chronic Heart Failure Unable to Determine Other, please specify MTDD
[2017-11-17 10:54] VITALS: BMI 27.8
[2017-11-17 11:26] VITALS: PULSE 92
[2017-11-17 11:50] LABS: Glucose,Whole Blood 261 mg/dL (75-99)
--- NOTE | 2017-11-17 14:47 | PN ---
PROGRESS NOTE DATE OF SERVICE: 11/17/2017. REASON FOR FOLLOWUP: Rash more likely secondary to Aldactone. INTERVAL HISTORY: The patient is currently afebrile. He is breathing comfortably. Denies having any chest pain, shortness of breath or cough. The rash has decreased intensity. No nausea, no vomiting, no diarrhea. EXAMINATION: Blood pressure 109/73 with a pulse of 104. Temperature 97.8. He is 95% on room air. General description is a middle aged male up in the bed in no distress. RESPIRATORY SYSTEM: Unlabored breathing. Clear to auscultation. HEART: S1, S2. Regular rate and rhythm. ABDOMEN: Soft. Overall rash has decreased in intensity. LABS: No new labs been obtained. DIAGNOSTIC IMPRESSION AND PLAN: Patient with extensive rash on abdominal wall, groin and chest areas more likely secondary to Aldactone, which has been discontinued. Continue the Benadryl and the Mycolog cream. No need for any systemic antibiotic therapy as clinically doubt cellulitis. Continue supportive care. MMODL / IJN: [id number] /
--- NOTE | 2017-11-17 16:47 | PN ---
PROGRESS NOTE The patient is seen for followup for hypervolemia. He is actually going home today. Patient denies any significant complaints. He states his abdomen feels better. PHYSICAL EXAMINATION: Blood pressure this morning was 109/73, heart rate 96 per minute. He is afebrile. Examination of the heart: S1, S2. Examination of the lungs: Bilateral breath sounds are heard. Abdomen is soft. No significant tenderness is noted. However, there is an area of induration in the lower abdomen. Rash is better. Examination lower extremities shows no evidence of edema. LICENSING SERVICES CLERK exam is grossly intact. LABS: Not available from today. Serum creatinine was 0.79 yesterday. ASSESSMENT: 1. Hypervolemia. Continue with diuretics. We can switch to 40 mg p.o. b.i.d. upon discharge with the Lasix. 2. Rash, most likely allergic, currently improving. Prednisone will need to be weaned down. 3. Lower extremity edema and ascites, currently improved. The patient will need to follow up regarding underlying possible liver disease. 4. Type 2 diabetes. PLAN: Okay for discharge from Nephrology standpoint with Lasix 40 mg p.o. b.i.d. Monitor renal function and electrolytes periodically. MMODL / IJN: [id number] /
[2017-11-18] MEDS ORDERED: methylPREDNISolone 4 MG TAB TAPER PO SCH (09:00)
--- NOTE | 2017-11-23 18:07 | DS ---
DISCHARGE SUMMARY CHIEF COMPLAINT: Anasarca, shortness of breath and ascites. HISTORY OF PRESENT ILLNESS AND PHYSICAL EXAMINATION: Details of this man's history and physical can be found in the initial workup. LABORATORY STUDIES: While he was in the hospital he had laboratory studies, details of which can be found in the laboratory section of his chart. COURSE IN THE HOSPITAL: After admission he was placed on bedrest and started on intravenous fluids and an exhaustive workup was launched to look at reasons for his ascites and anasarca. He was found to have marked cardiac insufficiency with a cardiac ejection fraction of around 15% to 20%. He had been known to be a heavy drinker. Despite efforts to diurese off his ascites and edema, this was minimally effective. He eventually was taken for paracentesis. While in the hospital, he developed increasing cellulitis of the lower abdominal wall and also an allergic-type dermatitis. Gradually, however, his ascites and edema began to disappear, as did the cellulitis. He started to improve. He was doing well enough that he could go home on 11/17, and he will be followed up in the office in a day. FINAL DIAGNOSES: 1. Anasarca. 2. Ascites. 3. Congestive heart failure. 4. Cardiomyopathy. 5. Renal failure. OPERATIONS: None. CONSULTATIONS: Cardiology. He is improved. MMODL / IJN: [id number] /
== END 2017-11-17 16:00 | disposition home health service (06) | DRG 432 ==
LOC: EC 11:40 → 3SUR 14:33 → 6SEL 11-09 12:45 → 5MS5E 11-14 21:07
PROVIDERS: ADMIT Family Medicine; ATTEND Family Medicine
PROC: 0W9G3ZX Drainage of Peritoneal Cavity, Percutaneous Approach, Diagnostic (ICD-10-PCS; principal; 2017-11-04)
DX: K70.31 Alcoholic cirrhosis of liver with ascites (principal); I50.23 Acute on chronic systolic (congestive) heart failure; L03.311 Cellulitis of abdominal wall; E87.1 Hypo-osmolality and hyponatremia; I47.2 Ventricular tachycardia; K42.0 Umbilical hernia with obstruction, without gangrene; I42.9 Cardiomyopathy, unspecified; L27.0 Generalized skin eruption due to drugs and medicaments taken internally; T50.0X5A Adverse effect of mineralocorticoids and their antagonists, initial encounter; D69.59 Other secondary thrombocytopenia; E11.65 Type 2 diabetes mellitus with hyperglycemia; E83.52 Hypercalcemia; E87.5 Hyperkalemia; F17.200 Nicotine dependence, unspecified, uncomplicated; I25.2 Old myocardial infarction; I27.20 Pulmonary hypertension, unspecified; I49.3 Ventricular premature depolarization; I50.82 Biventricular heart failure; J44.9 Chronic obstructive pulmonary disease, unspecified; K59.00 Constipation, unspecified; Z79.52 Long term (current) use of systemic steroids; Z80.0 Family history of malignant neoplasm of digestive organs; Z82.5 Family history of asthma and other chronic lower respiratory diseases; Z96.641 Presence of right artificial hip joint; Z79.899 Other long term (current) drug therapy; M19.90 Unspecified osteoarthritis, unspecified site; Z89.112 Acquired absence of left hand; N19 Unspecified kidney failure
CPT/HCPCS: 36415; 49083; 71046; 74160; 74177; 76705; 80048; 80053; 80202; 81003; 82040; 82042; 82150; 82306; 82310; 82945; 83036; 83605; 83615; 83690; 83735; 83880; 83970; 84157; 84484; 85025; 85027; 85610; 86705; 86706; 86709; 86803; 86850; 86900; 86901; 87040; 87070; 87075; 87205; 87340; 87521; 88108; 88305; 88341; 88342; 89050; 93306; 94640; 94760; 96361; 96374; 96375; 99285